=== PATIENT | male | born 1965 | race Caucasian/White ===

== ENCOUNTER 2024-10-21 07:35 | Inpatient (IN) ==
--- OUTSIDE RECORDS SUMMARY | 2024-10-21 07:57 | External Medical Summary ---
Author Name Unknown Address Unknown Organization : Laboratory Report Ordering Provider Test Date Status DenniseCifuentes 10/12/2024 08:58:00 Final Observation Date Value Abnormality Reference (Units ) Status Carbon dioxide, total [Moles/volume] in Serum or Plasma 10/13/2024 03:58:56 23 20-32 (mmol/L) Final
Specimen Received d/t: 10/12/2024 22:31:00

Lab test performed by:
[facility], [facility]
[address]
[place] [address]
Ej Arzola MD eGFR 10/13/2024 03:58:56 58 Below low normal > O R = 60 (mL/min/1.73m2) Final
Specimen Received d/t: 10/12/2024 22:31:00

Lab test performed by:
[facility], [facility]
[address]
[place] [phone]
Ej Arzola MD Sodium [Moles/volume] in Ser um or Plasma 10/13/2024 03:58:56 141 135-146 (mmol/L) January l
Specimen Received d/t: 10/12/2024 22:31:00

Lab test performed by:
[facility], [facility]
[address]
[place] [phone]
Ej Arzola MD Glucose [Mass/volume] in Serum or Plasma 10/13/2024 03:58:56 89 65-99 (mg/dL) Final
Fasting reference inte rval

Specimen Received d/t: 10/12/2024 22:31:00

Lab test performed by:
[facility] [place], [facility]
[address]
[place] [phone]
Ej Arzola MD Chloride [Moles/volume] in S kandi or Plasma 10/13/2024 03:58:56 106 98-110 (mmol/L) Final
Specimen Received d/t: 10/12/2024 22:31:00

Lab test performed by:
[facility], [facility]
[address]
[place] [address]
Ej Arzola MD Creatinine [Mass/volume] in Serum or Plasma 10/13/2024 03:58:56 1.39 Above high normal 0.70-1.30 (mg/dL) Final
Specimen Received d/t: 10/12/2024 22:31:00

Lab test performed by:
[facility], [facility]
[address]
[place] [address]
Ej Arzola MD [facility] 10/13/2024 03:58:56 9.7 8.6-10.3 ( mg/dL) Final
Specimen Received d/t: 10/12/2024 22:31:00

Lab test performed by:
[facility] [place], [facility]
[address]
[place] [address]
Ej Arzola MD Potassium [Moles/volume] in Serum or Plasma 10/13/2024 03:58:56 4.4 3.5-5.3 (mmol/L) January l
Specimen Received d/t: 10/12/2024 22:31:00

Lab test performed by:
[facility], [facility]
[address]
[place] [phone]
Ej Arzola MD Urea nitrogen/Creatinine [Ma ss Ratio] in Serum or Plasma 10/13/2024 03:58:56 10 6-22 ((calc)) January l
Specimen Received d/t: 10/12/2024 22:31:00

Lab test performed by:
[facility], [facility]
[address]
[place] [phone]
Ej Arzola MD Urea nitrogen [Mass/volume] in Serum or Plasma 10/13/2024 03:58:56 14 7-25 (mg/dL) Final
Specimen Received d/t: 10/12/2024 22:31:00

Lab test performed by:
[facility], [facility]
[address]
[place] [phone]
Ej Arzola MD Performing Location
--- OUTSIDE RECORDS SUMMARY | 2024-10-21 07:57 | External Medical Summary | Continuity of Care Document ---
Author Name Unknown Organization [facility] [place] [address] [place] [id number] Care Team Providers Care Quantitative Analyst Name Role Phone Dennise Cifuentes Primary Care Physician [phone] Encounter [facility] [id number] Date(s): 08/03/24 - 08/03/24 [facility] 0 [facility] 207 [facility] Medical [facility] [address] [address] [phone] Encounter Diagnosis Sinusitis, acute(Discharge Diagnosis) - 08/03/24 Weight disorder(Discharge Diagnosis) - 08/05/24 Body mass index [BMI] 35.0-35.9, adult(Discharge Diagnosis) - 08/05/24 Hypertension(Discharge Diagnosis) - 08/05/24 Discharge Disposition: Home or Self Care Attending Physician: DO Emmanuel Allison B Allergies, Adverse Reactions, Alerts No Known Medication Allergies Substance Criticality Severity Reaction Reaction Severity Status Pollen congestion, sneezing Active Assessment and Plan Extracted from: Title:Sinusitis Author:MD Zaheer, Rikkitx Date: 1.Sinusitis, acute Acute, uncomplicated illness/injury Goal: sx resolution Plan: - Approx 5d sx, several coworkers wdx'd sinusinfection - Discussed expected course if actually viral illness - Rx'damox 500mgtidx 7d - Continuesaline nasal spray, flonsase -AdvisedRTCif sxdo notimprovein ~10d _ Immunizations Given and Recorded Vaccine Date Status Refusal Reason zoster vaccine, inactivated 01/30/19 Recorded zoster vaccine, inactivated 11/23/18 Recorded zoster vaccine, inactivated 09/30/18 Recorded tetanus/diphtheria/pertuss, acel (Tdap) 08/14/13 G iven tetanus toxoid 02/27/00 Recorded 1Result Comment: 2021-06-29: Historical information-source unspecified Medications amoxicillin 500 mg oral capsule Start: 08/03/24 9:44:00 AM EST, 1 cap, PO, tid, Disp# 21 cap, Pharmacy: [facility] Start Date: 08/03/24 Stop Date: 08/10/24 Status: Ordered clobetasol 0.05% topical cream Start: 12/19/23 4:21:00 PM EDT, 1 appl, topical, bid, Disp# 60 g, Refills: 2, apply to psoriasis on knee as needed, Pharmacy: [facility] Start Date: 12/19/23 Status: Ordered Flovent HFA 110 mcg/inh MDI Start: 12/04/22 3:46:00 PM EST, 2 puff, inhaled, bid, Disp# 1 each, Refills: 1, Pharmacy: [facility] Start Date: 12/04/22 Status: Ordered lisinopril 10 mg oral tablet Start: 04/09/24 11:27:00 AM EDT, 0.5 tab, PO, Daily, Disp# 90 tab, Refills: 3, Pharmacy: [facility] Start Date: 04/09/24 Status: Ordered Protonix 40 mg oral delayed release tablet Start: 02/10/24 12:37:00 PM EDT, 1 tab, PO, Daily, Disp# 30 tab, Refills: 5, Pharmacy: [facility] Start Date: 02/10/24 Status: Ordered Vitamin D Start: 02/02/22 8:12:00 AM EDT, Vitamin D, See Instructions, 3 x weekly Start Date: 02/02/22 Status: Ordered Wegovy (0.25 mg dose) subcutaneous solution Start: 08/05/24 3:44:00 PM EST, 0.25 mg =, subQ, q7days, Disp# 6 mL, Refills: 1, in the abdomen, thigh, or upper arm, Pharmacy: [facility] Start Date: 08/05/24 Status: Ordered ZyrTEC 10 mg oral tablet Start: 09/19/23 2:49:00 PM EST, 1 tab, PO, Daily, Disp# 90 tab, Refills: 3, , Pharmacy: [facility] Start Date: 09/19/23 Status: Ordered Mental Status 08/03/24 Barriers to Learning one year None evide nt Mandatory Health Literacy Documentation Yes Health Literacy Communication Barriers N ever Primary Language Faroese Problem List Condition Confirmation Course Effective Dates Status Health Status Informant 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 Confirmed Active Cervical lymphadenopathy Confirmed Active Cervical radiculopathy Confirmed Active Chronic sinusitis Confirmed Active Muscle cramp Confirmed Active Vitamin D insufficiency Confirmed Active Carpal tunnel syndrome Confirmed Active Sleep disturbance Confirmed Active Dyslipidemia Confirmed Active Fatigue Confirmed Active Foot pain, left Confirmed Active Pain in both feet Confirmed Active Acid reflux Confirmed Active Hypertension Confirmed Active Hypertriglyceridemia Confirmed Active Elevated CK Confirmed Active Internal hemorrhoid Confirmed Active Malaise Confirmed Active BCC (basal cell carcinoma of skin) Confirmed Active Ear lump 1 Confirmed Active Myalgia Confirmed Active Mild obstructive sleep apnea Confirmed Active Psoriasis Confirmed Active Decreased libido Confirmed Active Elevated serum creatinine Confirmed Active Right shoulder pain Confirmed Active Tobacco abuse Confirmed Active Weight disorder Confirmed Active 1bilateral ear canal lump Diagnosis Diagnosis Type Effective Dates Health Status Clinical Service Informant Sinusitis, acute Discharge Diagnosis 08/03/24 Non-Specified Weight disorder Discharge Diagnosis 08/05/24 Non-Specified Body mass index [BMI] 35.0-35.9, adult Discharge Diagnosis 08/05/24 Non-Specified Hypertension Discharge Diagnosis 08/05/24 Non-Specified Procedures Procedure Date Related Diagnosis Body Site Status Chest x-ray 1 05/04/22 Completed Chest X-ray 2 07/03/21 Completed Colonoscopy 3 08/31/16 Completed Mohs surgery 2010 Completed CAT scan-maxillofacial with contrast 4 Completed Lumbosacral fusion 5 Comp leted Pilonidal fistula Complet ed Shave biopsy of skin Comp leted 1No acute processes of the chest No acute rib fracture or pneumothorax 2Impression: Mild bilateral interstitial coarsening is suspicious for a mild pneumonitis 3-anal scarring found on digital recta exam -the examined portion of the ileum was normal -the entire examined colon is normal -no specimens collected 4[facility] Impression: There are few subcentimeter lymph nodes along the inferior border of the left parotid gland with minimal fat standing at this location. There may be slight hyperenhancement the left parotid gland in comparison to right. Therefore these findings favor a mild parotitis. No loculated fluid collectionsto suggest an abscess. The paranasal sinuses and mastoid air cells are clear. 5L5- S1 Vital Signs Most recent to oldest [Reference Range]: 1 Patient Weight 121.1 kg (08/03/24 8:52 AM) Temperature [36.5-37.9 DegC] 36.7 DegC (08/03/24 8:52 AM) Blood Pressure 124/84mmHg (08/03/24 8:52 AM) BP Location # 1 Left Arm (08/03/24 8:52 AM) Social History Social History Type Response Tobacco 1 Smoking Status Never smoked cigaret mariana Sex Male Sex Representation Male (finding) 1quit chewing tobacco - now chewing herbal snuff FCM Outpt Note * DO Emmanuel Allison B: MODIFY DO Emmanuel Allison B: MODIFY Event Display: [facility] Outpt Note Authored Date: [id number] Chief Complaint Pt here for possible sinus infection. Nasal congestion, cough with yellow/green sputum History of Present Illness Sx since . Started w cough, sinus drainage (initially clear). Then got thicker and yellow. 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 +Sinus pressure,NIELSON, Rhinorrhea.No SOB,ear pain,CP, n/v/c/d [facility] and is adamant about getting tx before he leaves Review of Systems Per HPI Physical Exam Vitals & Measurements T:36.7C BP:124/84 SpO2:97% WT:121.100kg(Dosing) WT:121.1kg PHQ2 Data(Data Documented on:08/03/2024 08:50) Emotional health assessment NEGATIVE General:AOx3, NAD HEENT:NCAT, PERRL, MMM, no erythema or exudate,+sinus tenderness, no drainage noted Cardiovascular:RRR, no m/r/g, S1/S2 normal Respiratory:CTAB, respirations non-labored, symmetrical chest rise, notable cough Gastrointestinal:Soft, NT/ND, +BS Integumentary:Warm, Dry, Lindsey.No rashesorlesions Psych:Mood-affect congruent. Speech pace and content normal Assessment/Plan 1.Sinusitis, acute Acute, uncomplicated illness/injury Goal: sx resolution Plan: - Approx 5d sx, several coworkers wdx'd sinusinfection - Discussed expected course if actually viral illness - Rx'damox 500mgtidx 7d - Continuesaline nasal spray, flonsase -AdvisedRTCif sxdo notimprovein ~10d _ Attestation Pt seen and examined in concert with Dr. Hu_, agree with history and physical as documented above. Plan reviewed in detail. Any corrections or additions are noted here -agree with plan. Patient to be treated with amoxicillin 500 mg 3 times daily x 7 days as this has worked for him in the past . Side effects discussed. Continue oeyc-nyf-uqkmeue relief. Return to the office if signs or symptoms increase or persist. 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 BCC (basal cell carcinoma of skin) Carpal tunnel syndrome Cervical lymphadenopathy Cervical radiculopathy Chronic sinusitis Decreased libido Dyslipidemia Ear lump Elevated CK Elevated serum creatinine Fatigue Foot pain, left Hypertension Hypertriglyceridemia Internal hemorrhoid Malaise Mild obstructive sleep apnea Muscle cramp Myalgia Pain in both feet Psoriasis Right shoulder pain Sleep disturbance Tobacco abuse Vitamin D insufficiency Weight disorder Resolved Acute bronchitis Acute non-suppurative otitis media Acute otitis media Acute sinusitis Procedure/Surgical History Chest x-ray| Service Date: 05/04/2022hest X-ray| Service Date: 07/03/2021olonoscopy| Service Date: 08/31/2016[facility] surgery| Service Date: scan-maxillofacial with contrastShave biopsy of skinPilonidal fistulaLumbosacral fusion Medications amoxicillin(amoxicillin 500 mg oral capsule), 500 mg= 1 cap, PO, tid cetirizine(ZyrTEC 10 mg oral tablet), 10 mg= 1 tab, PO, Daily, 3 refills clobetasol topical(clobetasol 0.05% topical cream), 1 appl, topical, bid, 2 refills fluticasone(Flovent HFA 110 mcg/inh MDI), 2 puff, inhaled, bid, 1 refills lisinopril(lisinopril 10 mg oral tablet), 5 mg= 0.5 tab, PO, Daily, 3 refills pantoprazole(Protonix 40 mg oral delayed release tablet), 40 mg= 1 tab, PO, Daily, 5 refills semaglutide(Wegovy (0.25 mg dose) subcutaneous solution), 0.25 mg, subQ, q7days, 1 refills unknown medication(Vitamin D), See Instructions Allergies No Known Medication Allergies Pollencongestion, sneezing Social History Smoking Status Never smoked cigarettes Alcohol - Comments: occasionally Employment/School Status: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 Exercise - Comments: very active at work. insanity work out. Home/Environment Lives with:Spouse - Comments: daughters - 2 at home. has 4 daughters. Other - Comments: not sure of last td Tobacco - Comments: quit chewing tobacco - now chewing herbal snuff has chewed nicontine - can and half for yrs. none Family History Emphysema of lung: Mother. Gout: Father. Hypertension: Mother and Father. Osteoarthritis: Mother. Osteoporosis: Mother. Renal failure.: Father. Type II diabetes mellitus: Father. Health Status Family Member(s) Immunizations Vaccine Date Status zoster vaccine, inactivated 01/30/2019 Recorded zoster vaccine, inactivated 11/23/2018 Recorded Comments : 2021-06-29: Historical information-source unspecified zoster vaccine, inactivated 09/2018 Recorded tetanus/diphtheria/pertuss, acel (Tdap) 08/14/2013 Given tetanus toxoid 02/27/2000 Recorded Recommendations Health Maintenance Pending(in the next year) OverDue Adult Influenza Vaccine due03/29/24and every 1year Due Adult COVID-19 Vaccination due08/03/24Unknown Frequency Adult Social Determinants of Health Screening due08/03/24Unknown Frequency Adult Tdap/Td Vaccine due08/03/24Unknown Frequency Pneumococcal Vaccine Adults and Adolescents with Chronic Illness due08/03/24One-time only Satisfied(in the past 1 year) Satisfied Body Mass Index on07/23/24.Satisfied by YEIMY Mar [place] Electronic Signature on File Electronically Reviewed/Signed by: Mayte Schwab MD Author Signature Dt/Tm:08/03/2024 09:53 AM Resident Department of Family Medicine Electronically Reviewed/Signed by: DO Dayan Rose Signature Dt/Tm: 08/04/2024 11:43 AM Department of Family Medicine [facility] Patient Care team information Care Team Personnel Name: MD Esau, Dennise Position: Physician - Family Med Member Role: Primary Care Provider Address: [address] [place] [address] [place] Care Team Related Persons Name: ERIKA CARDENAS Name: ZENY CARDENAS Name: ZENY CARDENAS"
--- OUTSIDE RECORDS SUMMARY | 2024-10-21 07:57 | External Medical Summary | Summary of Care ---
Author Name Unknown Organization [facility] Address [address] [place] [address] Phone [phone] Care Team Providers Care Dispatcher Radioactive Waste Disposal Name Role Phone Dennise Cifuentes MD Primary Care Provider [phone] Reason for Referral * Evaluate & Treat - Unlimited Visits (Within 10 days (routine)) - Authorized Specialty Diagnoses / Procedures Referred By Contact Referred To Contact GI NUTRITION/IM / Gastroenterology Diagnoses BMI 35.0-35.9,adult Weight disorder Dennise Cifuentes MD [address] [address] Referral ID Status Reason Start Date Expiration Date Visits Requested Visits Authorized [id number] Authorized Specialty Services Required 08/01/[phone] Question Answer Referral Priority Within 10 days (routine) Where should this appointment be scheduled? [facility] For what condition is the patient being seen? Obesity Is this referral for a GLP1 medication? No Comments THE PATIENT WILL NOT BE PRESCRIBED GLP-1 MEDICATIONS UNLESS: *Documentation of an unsuccessful trial of losing at least 5% of weight loss *Documentation the patient has had tried and failed two [2] non-GLP1 agonists (Phentermine and Wellbutrin/ Naltrexone) *Documentation of two [2] or more appointments discussing weight loss and lifestyle changes *Documentation of a blood pressure and weight within the EMR before initiation of the GLP-1 or non-GLP-1 medications REFERRING PROVIDER MUST ACKNOWLEDGE ALL OF THE CONDITIONS ABOVE ARE MET AND HAVE A BMI >35. IF THESE CONDITIONS ARE NOT MET THE PATIENT WILL NOT BE PRESCRIBED GLP- 1 PRESCRIPTIONS. Encounter Details Date Type Department Care Team (Late st Contact Info) Description 08/01/2024 Orders Only [facility] [place] [facility] [address] [place] [address] Ext *DO NOT REMOVE THIS DEPARTMENT* [place] [id number] Request, External Referral BMI 35.0-35.9,adult*; Weight disorder Allergies No known active allergiesdocumented as of this encounter (statuses as of 08/01/2024) Medications Medication Sig Dispensed Refills Start Date End Date Status Lisinopril 10 MG Oral Tablet (Prinivil) 03/21/2022 Active Triamcinolone Acetonide 0.025 % External Lotion Apply topically to affected area . Apply to hands Active Meloxicam 15 MG Oral TabletIndications:Po lyarthralgia Take by mouth 1 Tablet daily with breakfast . 30 Tablet 5 04/09/2022 Active Tamsulosin HCl 0.4 MG Oral Capsule (Flomax) Take 1 Capsule by mouth in the morning. 1 daily. 08/28/2022 Active Clotrimazole-Betamet hasone 1-0.05 % External Cream (Lotrisone) APPLY A SMALL/PEA-SIZED AMOUNT TOPICALLY EVERY 8 HOURS AND AT LEAST BEFORE BED 08/28/2022 Active documented as of this encounter (statuses as of 08/01/2024) Active Problems Problem Noted Date Diagnosed Date Hypertension 09/18/2022 Class 2 obesity 02/02/2022 Hypertriglyceridemia 02/02/2022 Psoriasis 02/02/2022 documented as of this encounter (statuses as of 08/01/2024) Social History Tobacco Use Types Packs/Day Years Used Date Smoking Tobacco: Never Smokeless Tobacco: Current Alcohol Use Standard Drinks/Week Comments No 0 (1 standard drink = 0.6 oz pur e alcohol) Utilities Answer Date Recorded Do you have trouble paying y our heating, water, or electric bill? (Adult - for ages 18 years and over) Not on file 03/17/2024 Is your family able to pay t he heat, water, or electric bill? (Household - for ages 0-17 years) Not on file 03/17/2024 Does your family have access to good internet? (Household - for ages 0-17 years) Not on file 03/17/2024 Social Connections Answer Date Recorded How often do you feel lonely or isolated from those around you? (Adult - for ages 18 years and over) Not on file 03/17/2024 Sex and Gender Information Value Date Recorded Sex Assigned at Not on file Gender Identity Not on file Sexual Orientation Not on file Job Start Date Occupation Industry Not on file Not on file Not on file documented as of this encounter Plan of Treatment Scheduled Referrals Name Type Priority Associated Diagnoses Orde r Schedule GI NUTRITION REFERRAL OP Referral Within 10 days (routine) BMI 35.0-35.9,adult Weight disorder Ordered: 08/01/2024 Health Maintenance Due Date Last Done Comments Lipid Panel 1965 Depression Screening 1977 HIV Screening 1980 Albumin/Creatinine Ratio 1983 Hepatitis C Screening 1983 DTap/Tdap Vaccines (1 - Tdap) 1984 Hepatitis B Vaccine (1 of 3 - 19+ 3-dose series) 1984 Cologuard 2010 Colonoscopy 2010 Colorectal Cancer Screening 2010 Fecal Occult Blood Test 2010 Sigmoidoscopy 2010 GFR 07/20/2023 07/20/2022 COVID-19 Vaccine (2023-2 5 season) 2024 Influenza Vaccine (FLU shot) (#1) 2024 Diabetes Screening 07/20/2025 07/20/2022 Zoster Vaccines Completed 01/30/2019, 11/23/2018 HPV (Gardasil) Vaccine Aged Out No lo nger eligible based on patient's age to complete this topic MENINGOCOCCAL (MENACTRA/MENVEO) Aged Out No longer eligible b ased on patient's age to complete this topic Pneumococcal Vaccine: Pediatrics (0 to 5 Years) and At-Risk Patients (6 to 64 Years) Aged Out No longer eligible b ased on patient's age to complete this topic documented as of this encounter Medical Devices Not on filedocumented as of this encounter Visit Diagnoses Diagnosis BMI 35.0-35.9,adult- Primary Body Mass Index 35.0-35.9, adult Weight disorder Other symptoms concerning nutrition, metabolism, and development documented in this encounter Care Teams Dispatcher Radioactive Waste Disposal Relationship Specialty Start Date End Date Dennise Cifuentes MD [address] [place] [address] PCP - General Family Medicine 11/30/21 documented as of this encounter
--- OUTSIDE RECORDS SUMMARY | 2024-10-21 07:57 | External Medical Summary ---
Author Name Unknown Address Unknown Organization : Laboratory Report Ordering Provider Test Date Status Esau Bowden 10/12/2024 08:58:00 Final Observation Date Value Abnormality Reference (Units ) Status Prostate specific Ag [Mass/volume] in Serum or Plasma 10/13/2024 03:58:56 0.84 < OR = 4.00 (ng/mL) Final The total PSA value from thi s assay system is
standardized against the WHO standard. The test
result will be approximately 20% lower when compared
to the equimolar-standardized total PSA (Boogie
Christophe). Comparison of serial PSA results should be
interpreted with this fact in mind.

This test was performed using the Siemens
chemiluminescent method. Values obtained from
different assay methods cannot be used
interchangeably. PSA levels, regardless of
value, should not be interpreted as absolute
evidence of the presence or absence of disease.

Specimen Received d/t: 10/12/2024 22:31:00

Lab test performed by:
[facility]
[address]
[place] [address]
Ej Arzola MD Performing Location
--- OUTSIDE RECORDS SUMMARY | 2024-10-21 07:57 | External Medical Summary | Continuity of Care Document ---
Author Name Unknown Organization [facility] [address] [place] [address] [place] [address] [phone] Care Team Providers Care Criminal Defense Attorney Name Role Phone Dennise Cifuentes Primary Care Physician [phone] Encounter [facility] [phone] Date(s): 07/23/24 - 07/23/24 [facility] [address] [facility] [address] [address] [phone] Encounter Diagnosis Hypertension(Discharge Diagnosis) - 07/23/24 Dizziness on standing(Discharge Diagnosis) - 07/23/24 Foot pain(Discharge Diagnosis) - 07/23/24 Weight disorder(Discharge Diagnosis) - 07/23/24 Body mass index [BMI] 35.0-35.9, adult(Discharge Diagnosis) - 07/23/24 Discharge Disposition: Home or Self Care Attending Physician: MD Cifuentes Madhavi Allergies, Adverse Reactions, Alerts No Known Medication Allergies Substance Criticality Severity Reaction Reaction Severity Status Pollen congestion, sneezing Active Assessment and Plan Extracted from: Title:Office Visit Note - APSO Author:MD Cifuentes Madhavi Date:07/23/24 1.Hypertension Chronic,unstable,goalavoid hypotension Datanone Plan -see below 2.Dizziness on standing Acute,undifferentiated,goalimprove symptoms. Data none Plan- dizziness likely fromorthostasiswith lower baseline blood pressure readingswhile on lisinopril Decrease dose to 5 mg Check blood pressure readingsat home. If dizziness persists -will DC lisinoprilandcheck labs. 3.Foot pain Chronic,uncontrolled,goal improve symptoms Data none Plan - Refer toorthotics.Order entered 4.Weight disorder 5.Body mass index [BMI] 35.0-35.9, adult Chronic, uncontrolled, plan - weight loss. data - none plan - has tried his bed with dietary changes but struggling during the day at work with food choices. referral to quality process lead, ralf [email or web address]. f/u as scheduled. Immunizations Given and Recorded Vaccine Date Status Refusal Reason zoster vaccine, inactivated 01/30/19 Recorded zoster vaccine, inactivated 1 11/23/18 Recorded zoster vaccine, inactivated 09/30/18 Recorded tetanus/diphtheria/pertuss, acel (Tdap) 08/14/13 G iven tetanus toxoid 02/27/00 Recorded 1Result Comment: 2021-06-29: Historical information-source unspecified Medications clobetasol 0.05% topical cream Start: 12/19/23 4:21:00 PM EDT, 1 appl, topical, bid, Disp# 60 g, Refills: 2, apply to psoriasis on knee as needed, Pharmacy: [id number] Start Date: 12/19/23 Status: Ordered Flovent HFA 110 mcg/inh MDI Start: 12/04/22 3:46:00 PM EST, 2 puff, inhaled, bid, Disp# 1 each, Refills: 1, Pharmacy: [id number] Start Date: 12/04/22 Status: Ordered lisinopril 10 mg oral tablet Start: 04/09/24 11:27:00 AM EDT, 0.5 tab, PO, Daily, Disp# 90 tab, Refills: 3, Pharmacy: [facility] Start Date: 04/09/24 Status: Ordered Protonix 40 mg oral delayed release tablet Start: 02/10/24 12:37:00 PM EDT, 1 tab, PO, Daily, Disp# 30 tab, Refills: 5, Pharmacy: [facility] Start Date: 02/10/24 Status: Ordered Vitamin D Start: 02/02/22 8:12:00 AM EDT, Vitamin D, See Instructions, 3 x weekly Start Date: 02/02/22 Status: Ordered Wegovy (0.25 mg dose) subcutaneous solution Start: 07/23/24 9:46:00 AM EDT, 0.25 mg =, subQ, q7days, Disp# 6 mL, Inject 0.25 mg SQ every 7 daysX 4 weeks then increase to 0.5 mg every 7 days, Pharmacy: [facility] Start Date: 07/23/24 Status: Ordered ZyrTEC 10 mg oral tablet Start: 09/19/23 2:49:00 PM EST, 1 tab, PO, Daily, Disp# 90 tab, Refills: 3, , Pharmacy: [id number] Start Date: 09/19/23 Status: Ordered Mental Status 07/23/24 Barriers to Learning one year None evide nt Mandatory Health Literacy Documentation Yes Health Literacy Communication Barriers N ever Primary Language Kinyarwanda Problem List Condition Confirmation Course Effective Dates [...] Effective Dates Health Status Clinical Service Informant Dizziness on standing Discharge Diagnosis 07/23/24 Non-Specified Foot pain Discharge Diagnosis 07/23/24 Non-Specified Body mass index [BMI] 35.0-35.9, adult Discharge Diagnosis 07/23/24 Non-Specified Hypertension Discharge Diagnosis 07/23/24 Non-Specified Weight disorder Discharge Diagnosis 07/23/24 Non-Specified Procedures Procedure Date Related Diagnosis Body [...] colon is normal -no specimens collected [facility] Impression: There are few subcentimeter lymph nodes [...] Most recent to oldest [Reference Range]: 1 Height 184.6 cm (07/23/24 9:13 AM) Patient Weight 119.5 kg (07/23/24 9:13 AM) Body Mass Index 35.07 kg/m2 (07/23/24 9:13 AM) Temperature [36.5-37.9 DegC] 36.4 DegC *LOW* (07/23/24 9:13 AM) Heart Rate 56 bpm (07/23/24 9:13 AM) Respiratory Rate 18 br/min (07/23/24 9:13 AM) Blood Pressure 116/82mmHg (07/23/24 9:13 AM) Cuff Pulse Pressure 34 mmHg (07/23/24 9:13 AM) Social History Social History Type Response Tobacco 1 Smoking Status Never smoked cigaret mariana Sex Male Sex Representation Male (finding) 1quit chewing tobacco - now chewing herbal snuff FCM Outpt Note * MD Esau, Dennise: PERFORM Event Display: FCM Outpt Note Authored Date: Assessment/Plan 1.Hypertension Chronic,unstable,goalavoid hypotension Datanone Plan -see below 2.Dizziness on standing Acute,undifferentiated,goalimprove symptoms. Data none Plan- dizziness likely fromorthostasiswith lower baseline blood pressure readingswhile on lisinopril Decrease dose to 5 mg Check blood pressure readingsat home. If dizziness persists -will DC lisinoprilandcheck labs. 3.Foot pain Chronic,uncontrolled,goal improve symptoms Data none Plan - Refer toorthotics.Order entered 4.Weight disorder 5.Body mass index [BMI] 35.0-35.9, adult Chronic, uncontrolled, plan - weight loss. data - none plan - has tried his bed with dietary changes but struggling during the day at work with food choices. referral to quality process lead, ralf [email or web address]. f/u as scheduled. Chief Complaint lightheadedness after bending down History of Present Illness Lightheadedness - while bending at work - when standing - gets lightheaded when standing. then gets up slowly. no palpitation. systolic BP at home 121, 113 before taking lisinopril in am. Foot pain - feet - hurting a lot. has had extensive work up for it. has found regular shoes that are helping butwondering about orthotics for work boots Weight mx - wants to loose weight to help with his foot pain wants to try wegovy. Physical Exam Vitals & Measurements T:36.4C HR:56(Monitored) RR:18 BP:116/82 SpO2:97% HT:184.6cm WT:119.500kg(Dosing) WT:119.5kg BMI:35.07 PHQ2 Data(Data Documented on:07/23/2024 09:10) Emotional health assessment NEGATIVE Comfortable RRR no resp distress Problem List/Past Medical History Ongoing Acid reflux [...] 05/04/2022hest X-ray| Service Date: 07/03/2021olonoscopy| Service Date: 08/31/2016[facility] surgery| Service Date: scan-maxillofacial with contrastShave biopsy of skinPilonidal fistulaLumbosacral fusion Medications cetirizine(ZyrTEC 10 mg oral tablet), 10 mg= [...] mg dose) subcutaneous solution), 0.25 mg, subQ, q7days unknown medication(Vitamin D), See Instructions Allergies No Known Medication Allergies Pollencongestion, sneezing Social History Smoking Status Never smoked cigarettes Alcohol - Comments: occasionally Employment/School Status: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 Exercise - Comments: very [...] due03/29/24and every 1year Due Adult COVID-19 Vaccination due07/23/24Unknown Frequency Adult Social Determinants of Health Screening due07/23/24Unknown Frequency Adult Tdap/Td Vaccine due07/23/24Unknown Frequency Pneumococcal Vaccine Adults and Adolescents with Chronic Illness due07/23/24One-time only Satisfied(in the past 1 year) Satisfied Body Mass Index on07/23/24.Satisfied by YEIMY Mar [place] Electronic Signature on File Electronically Reviewed/Signed by: Dennise Cifuentes MD Author Signature Dt/Tm:07/23/2024 10:03 AM Department of Family Medicine [place] Patient Care team information Care Team Personnel Name: MD Cifuentes Madhavi Position: Physician - Family Med Member Role: Primary Care Provider Address: [address] [phone] [place] Care Team Related Persons Name: ERIKA CARDENAS Name: ZENY CARDENAS Name: ZENY CARDENAS"
--- NOTE | 2024-10-21 08:04 | Emergency Department Note ---
Impression & Plan Sepsis, Enterotoxigenic Escherichia coli infection, Salmonella infection, Acute renal failure ED Provider Note NAME: MARÍA CARDENAS AGE: 59 SEX: M : 1965 ARRIVES VIA: Walk-In INFORMANT: Patient ED PROVIDER(S): Jw Contreras MD CHIEF COMPLAINT: Dizziness, nausea, vomiting, diarrhea. PLAN: Disposition: Admit MEDICAL DECISION MAKING: The patient is a pleasant 59-year-old gentleman with a past medical history of hypertension who presents to the emergency department via walk-in accompanied by his for evaluation of generalized weakness, dizziness with ongoing diarrhea for the past several days. The patient reports he also has not urinated in that time. They described the stool as liquid brown with numerous episodes per day. Patient reports associated nausea and vomiting as well. He reports some left lateral chest pain but denies shortness of breath, cough, congestion. On arrival the patient is ill-appearing, hypotensive with blood pressure 50s/30s, heart rate in the 90s and rectal temperature of 36.3. O2 saturation is 98% on room air. He appears clinically dry. Abdomen is nontender. EKG without overt acute ischemia. CXR negative for acute cardiopulmonary process per my personal preliminary review/interpretation. WBC 15K with neutrophilia but no left shift. H/H is hemoconcentrated with hemoglobin of 19.4 and 54.5. VBG with pH of 7.3 with pCO2 within normal limits. Chemistry demonstrates acute renal failure with creatinine of 5.4 and BUN of 56 in the setting of having baseline normal creatinine. K+ 3.1. Bicarbonate is 21. Anion gap is 19 and lactic acid initial 3.1 with repeat improved to 2.1 after 2 L of normal saline. Sodium was 127 with glucose of 145. AST is mildly elevated at 45, nonspecific and LFTs otherwise normal. Initial high-sensitivity troponin 53 which was downtrending to 41 on repeat. Lipase is not elevated. Procalcitonin is 11.7. UA demonstrates WBCs and bacteria but with epithelial cells present. Stool studies were ordered and pending. Respiratory BioFire was negative. CT of the abdomen pelvis demonstrates evidence of colitis. CT of the chest was negative for acute abnormalities. Of note, patient's hypotension did respond to initial 2 L of IV fluids however then became hypotensive again. Third liter was administered with fluid responsiveness but then again down trending and hypotensive. A limited bedside cardiac ultrasound demonstrated grossly normal EF and collapsed IVC consistent with the patient's clinically dry appearance. He was ordered for 1 L of lactated ringers and Levophed ordered for blood pressure support at 0.05mcg/kg/min with maps improved to the 70s. Blood cultures were sent and empiric Zosyn was ordered. Esteban catheter was placed without 5cc of urine initially. Case was d/[place]. [place] [facility] [place] who will evaluate the patient for admission. Stool studies resulted subsequently positive for Salmonella and ETEC. Admitting team aware. Further management per admitting team. Triage Nursing notes reviewed and agree them. Prior/external medical records reviewed Vital Signs: reviewed Differential diagnosis: Gastroenteritis, food borne illness, infections, appendicitis, diverticulitis, inflammatory bowel disease, obstruction, GI bleed, biliary pathology, volvulus, as well as other pathologies. ER treatment provided: See below. Diagnostics interpreted by me: ECG: Normal sinus rhythm, 68 bpm, no ectopy, no overt ST ovation or depression, QTc 440, QRS 96. Cardiac Monitoring: An order for continuous cardiac monitoring was placed and demonstrated Normal sinus rhythm, 68 bpm, no ectopy Laboratory studies: See below Imaging studies: See below Consultation(s): Case was d/[place] Dr. [place] [facility] [place] who will evaluate the patient for admission. HPI: The patient is a pleasant 59-year-old gentleman with a past medical history of hypertension who presents to the emergency department via walk-in accompanied by his for evaluation of generalized weakness, dizziness with ongoing diarrhea for the past several days. The patient reports he also has not urinated in that time. They described the stool as liquid brown with numerous episodes per day. Patient reports associated nausea and vomiting as well. He reports some left lateral chest pain but denies shortness of breath, cough, congestion. ROS: See above HPI for pertinent positives & negatives. A total of 10 systems reviewed and were otherwise negative. VITALS:See Below PHYSICAL EXAMINATION: GENERAL: Awake, alert, ill-appearing, in no distress HENT: Normocephalic, atraumatic. Oropharynx with dry mucous membranes and otherwise unremarkable. EYES: Normal conjunctiva. Sclera non-icteric. NECK: Supple. No nuchal rigidity. FROM. No JVD. RESPIRATORY: Clear to auscultation. CARDIAC: Tachycardic rate, normal rhythm. Extremities warm and well perfused. Pulses equal. ABDOMEN: Soft, non-distended. No tenderness to palpation. No rebound or guarding. No masses. MUSCULOSKELETAL: Chest examination reveals no tenderness. The back is symmetrical on inspection without obvious abnormality. There is no CVA tenderness to palpation. No joint edema. LOWER EXTREMITIES: Calves are equal size bilaterally and non-tender. No edema. No discoloration. NEURO: Normal sensorium. No sensory or motor deficits noted. SKIN: Cool and pale. No rash or jaundice noted. ED COURSE: Critical Care: I have personally spent greater than 55 minutes of critical care time in the direct management of this patient. This includes bedside care, interpretation of diagnostic studies, and testing, discussion with consultants, patient, and family members, and other required patient management activities. This 55 minutes is in excess of all separately billable procedures. Jw Contreras MD Past Med/Surg History Problem List (Updated 10/21/24 @ 15:54 by Jw Contreras MD) Acute renal failure (Acute) Sepsis (Acute) Salmonella infection (Acute) Enterotoxigenic Escherichia coli infection (Acute) Hypotension HEATHER (acute kidney injury) Diarrhea Septic shock Colitis Umbilical hernia without obstruction and without gangrene Obesity (BMI 30-39.9) Diastasis recti 1st MTP arthritis Testicular/scrotal pain Scrotal lesion Medical History Hypertension Surgical History No significant past surgical history Social History Smoking Status: Never smoker Tobacco Type: Smokeless Tobacco (Dip or Chew) Second Hand Exposure: No; Do You Dip or Chew Tobacco: Yes; Tobacco Cessation Education Requested by Patient: No Hx Alcohol Use: No Hx Substance Use: No Preferred Language: Hong Konger Communication Ability: Effective Toolsmith Required: No Beliefs That Will Affect Care: None Current Living Situation: Spouse Other Information That Helps Us Care for You: No Feels Safe at Home: Yes Safety Concerns: Feels Safe At This Time Assistive Devices: None Allergies Allergies Allergy/AdvReac Type Severity Reaction Status Date / Time No Known Allergies Allergy Unknown Verified 10/21/24 09:41 Home Meds Home Medications Medication Instructions Recorded Confirmed lisinopril 10 mg tablet 10 mg PO DAILY 10/21/24 10/21/24 prednisone 10 mg tablet See Rx Instructions .Route .COMPLEX 10/21/24 10/21/24 semaglutide (weight loss) 0.25 0.25 mg subcut WK 10/21/24 10/21/24 mg/0.5 mL subcutaneous pen injector (Wegovy) Results & Data (ED) Vital Signs Vital Signs - 24 hr 10/21/24 07:44 10/21/24 08:00 10/21/24 08:01 Temperature Temperature Source Pulse Rate 94 H Pulse Rate from SpO2 Sensor Respiratory Rate 18 Respiratory Effort / Characteristics Non-Labored Spontaneous Respiratory Depth Normal Blood Pressure 55/38 L 78/52 L Blood Pressure [Right Arm] Blood Pressure Mean 43 61 Blood Pressure Mean [Right Arm] Blood Pressure Position Sitting Blood Pressure Position [Right Arm] Pulse Oximetry 98 96 Oxygen Delivery Method Room Air Room Air Sepsis Recent Fever Within 48 Hours No Sepsis New/Unexplained Change in Mental Status No Sepsis Action Taken by Nursing No Action Required 10/21/24 08:03 10/21/24 08:14 10/21/24 08:18 Temperature 36.3 C L Temperature Source Rectal Pulse Rate 67 65 Pulse Rate from SpO2 Sensor 67 65 Respiratory Rate 11 L 18 Respiratory Effort / Characteristics Respiratory Depth Blood Pressure 78/52 L 89/48 L Blood Pressure [Right Arm] Blood Pressure Mean 60 61 Blood Pressure Mean [Right Arm] Blood Pressure Position Blood Pressure Position [Right Arm] Pulse Oximetry 97 98 Oxygen Delivery Method Sepsis Recent Fever Within 48 Hours Sepsis New/Unexplained Change in Mental Status Sepsis Action Taken by Nursing 10/21/24 08:24 10/21/24 08:30 10/21/24 09:03 Temperature Temperature Source Pulse Rate 65 59 L 66 Pulse Rate from SpO2 Sensor 59 L 66 Respiratory Rate 17 19 Respiratory Effort / Characteristics Respiratory Depth Blood Pressure 97/50 L 74/53 L Blood Pressure [Right Arm] Blood Pressure Mean 65 60 Blood Pressure Mean [Right Arm] Blood Pressure Position Blood Pressure Position [Right Arm] Pulse Oximetry 95 97 Oxygen Delivery Method Sepsis Recent Fever Within 48 Hours Sepsis New/Unexplained Change in Mental Status Sepsis Action Taken by Nursing 10/21/24 09:15 10/21/24 09:24 10/21/24 09:41 Temperature 36.4 C L Temperature Source Esteban Cath ( Temp Sensing) Pulse Rate 80 Pulse Rate from SpO2 Sensor 80 Respiratory Rate 19 Respiratory Effort / Characteristics Respiratory Depth Blood Pressure 90/58 L 99/61 L Blood Pressure [Right Arm] Blood Pressure Mean 68 72 Blood Pressure Mean [Right Arm] Blood Pressure Position Blood Pressure Position [Right Arm] Pulse Oximetry 97 Oxygen Delivery Method Sepsis Recent Fever Within 48 Hours Sepsis New/Unexplained Change in Mental Status Sepsis Action Taken by Nursing 10/21/24 09:51 10/21/24 10:00 10/21/24 10:00 Temperature Temperature Source Pulse Rate 64 69 67 Pulse Rate from SpO2 Sensor 66 68 Respiratory Rate 19 21 18 Respiratory Effort / Characteristics Respiratory Depth Blood Pressure 82/54 L 110/58 L 110/58 L Blood Pressure [Right Arm] Blood Pressure Mean 63 75 70 Blood Pressure Mean [Right Arm] Blood Pressure Position Blood Pressure Position [Right Arm] Pulse Oximetry 98 97 97 Oxygen Delivery Method Sepsis Recent Fever Within 48 Hours Sepsis New/Unexplained Change in Mental Status Sepsis Action Taken by Nursing 10/21/24 10:12 10/21/24 10:15 10/21/24 10:24 Temperature 37.0 C Temperature Source Esteban Cath ( Temp Sensing) Pulse Rate 69 Pulse Rate from SpO2 Sensor Respiratory Rate 20 Respiratory Effort / Characteristics Respiratory Depth Blood Pressure 106/55 L 94/57 L Blood Pressure [Right Arm] Blood Pressure Mean 72 67 Blood Pressure Mean [Right Arm] Blood Pressure Position Blood Pressure Position [Right Arm] Pulse Oximetry 97 Oxygen Delivery Method Sepsis Recent Fever Within 48 Hours Sepsis New/Unexplained Change in Mental Status Sepsis Action Taken by Nursing 10/21/24 10:27 10/21/24 10:30 10/21/24 10:32 Temperature Temperature Source Pulse Rate 70 Pulse Rate from SpO2 Sensor 68 Respiratory Rate 22 Respiratory Effort / Characteristics Respiratory Depth Blood Pressure 77/52 L Blood Pressure [Right Arm] 69/49 L Blood Pressure Mean 58 Blood Pressure Mean [Right Arm] 55 Blood Pressure Position Blood Pressure Position [Right Arm] Sitting Pulse Oximetry 95 Oxygen Delivery Method Sepsis Recent Fever Within 48 Hours Sepsis New/Unexplained Change in Mental Status Sepsis Action Taken by Nursing 10/21/24 10:32 10/21/24 10:36 10/21/24 10:39 Temperature Temperature Source Pulse Rate 69 69 Pulse Rate from SpO2 Sensor 69 69 Respiratory Rate 27 H 20 Respiratory Effort / Characteristics Respiratory Depth Blood Pressure 77/52 L 84/47 L 86/55 L Blood Pressure [Right Arm] Blood Pressure Mean 58 59 65 Blood Pressure Mean [Right Arm] Blood Pressure Position Blood Pressure Position [Right Arm] Pulse Oximetry 96 98 Oxygen Delivery Method Sepsis Recent Fever Within 48 Hours Sepsis New/Unexplained Change in Mental Status Sepsis Action Taken by Nursing 10/21/24 10:40 10/21/24 10:42 10/21/24 10:45 Temperature Temperature Source Pulse Rate 65 Pulse Rate from SpO2 Sensor 64 Respiratory Rate 23 Respiratory Effort / Characteristics Respiratory Depth Blood Pressure 86/55 L 94/59 L Blood Pressure [Right Arm] Blood Pressure Mean 65 72 Blood Pressure Mean [Right Arm] Blood Pressure Position Blood Pressure Position [Right Arm] Pulse Oximetry 97 Oxygen Delivery Method Sepsis Recent Fever Within 48 Hours Sepsis New/Unexplained Change in Mental Status Sepsis Action Taken by Nursing 10/21/24 10:45 10/21/24 10:45 10/21/24 10:48 Temperature Temperature Source Pulse Rate 63 65 Pulse Rate from SpO2 Sensor 64 62 Respiratory Rate 26 H 27 H Respiratory Effort / Characteristics Respiratory Depth Blood Pressure 94/59 L Blood Pressure [Right Arm] Blood Pressure Mean 72 Blood Pressure Mean [Right Arm] Blood Pressure Position Blood Pressure Position [Right Arm] Pulse Oximetry 97 99 Oxygen Delivery Method Sepsis Recent Fever Within 48 Hours Sepsis New/Unexplained Change in Mental Status Sepsis Action Taken by Nursing 10/21/24 10:50 10/21/24 10:50 10/21/24 10:51 Temperature Temperature Source Pulse Rate 64 Pulse Rate from SpO2 Sensor 64 Respiratory Rate 22 Respiratory Effort / Characteristics Respiratory Depth Blood Pressure 105/58 L 105/58 L Blood Pressure [Right Arm] Blood Pressure Mean 64 64 Blood Pressure Mean [Right Arm] Blood Pressure Position Blood Pressure Position [Right Arm] Pulse Oximetry 99 Oxygen Delivery Method Sepsis Recent Fever Within 48 Hours Sepsis New/Unexplained Change in Mental Status Sepsis Action Taken by Nursing 10/21/24 10:55 10/21/24 11:00 10/21/24 11:00 Temperature Temperature Source Pulse Rate Pulse Rate from SpO2 Sensor Respiratory Rate Respiratory Effort / Characteristics Respiratory Depth Blood Pressure 108/58 L 99/62 L 99/62 L Blood Pressure [Right Arm] Blood Pressure Mean 75 74 74 Blood Pressure Mean [Right Arm] Blood Pressure Position Blood Pressure Position [Right Arm] Pulse Oximetry Oxygen Delivery Method Sepsis Recent Fever Within 48 Hours Sepsis New/Unexplained Change in Mental Status Sepsis Action Taken by Nursing 10/21/24 11:00 10/21/24 11:03 Temperature Temperature Source Pulse Rate 72 Pulse Rate from SpO2 Sensor 71 Respiratory Rate 21 Respiratory Effort / Characteristics Respiratory Depth Blood Pressure 99/62 L Blood Pressure [Right Arm] Blood Pressure Mean 74 Blood Pressure Mean [Right Arm] Blood Pressure Position Blood Pressure Position [Right Arm] Pulse Oximetry 97 Oxygen Delivery Method Sepsis Recent Fever Within 48 Hours Sepsis New/Unexplained Change in Mental Status Sepsis Action Taken by Nursing Laboratory Data Attestation: I reviewed the patient's lab results. 10/21/24 07:55 10/21/24 07:55 Lab Results 10/21/24 10/21/24 10/21/24 Range/Units 07:55 08:05 08:09 WBC 15.00 H (4.8-10.8) K/ul RBC 6.44 H (4.70-6.10) M/uL Hgb 19.4 H (14.0-18.0) g/dl POC Hgb (14.0-18.0) g/dl Hct 54.5 H (42.0-52.0) % POC Hct (42-52) % MCV 84.6 (80.0-100.0) fL MCH 30.1 (25.0-34.0) pg MCHC 35.6 (32.0-36.0) g/dL RDW Std Deviation 39.8 (36.4-46.3) fL RDW Coeff of Cipriano 13.4 (11.5-14.5) % Plt Count 215 (130-400) K/uL MPV 11.5 (9.4-12.4) fL Immature Gran % (Auto) 0.7 % Neut % (Auto) 81.8 % Lymph % (Auto) 10.2 % [place] % (Auto) 6.7 % Eos % (Auto) 0.3 % Baso % (Auto) 0.3 % Neut # (Auto) 12.27 H (1.40-6.50) K/uL Lymph # (Auto) 1.53 (1.20-3.40) K/uL [place] # (Auto) 1.00 H (0.11-0.59) K/uL Eos # (Auto) 0.05 (0.00-0.50) K/uL Baso # (Auto) 0.05 (0.00-0.20) K/uL Immature Gran # (Auto) 0.10 (0.01-0.20) K/uL POC Sodium (135-144) mmol/L Sodium 127 L (136-145) mmol/L POC Potassium (3.3-5.0) mmol/L Potassium 3.3 L (3.5-5.1) mmol/L POC Chloride (101-112) mmol/L Chloride 87 L (98-107) mmol/L Carbon Dioxide 21 (21-32) mmol/L POC Total CO2 (24-31) mmol/L Anion Gap 19 H (3-11) POC Anion Gap (16-25) mmol/L POC BUN (7-18) mg/dl BUN 56 H (6-23) mg/dl Creatinine 5.40 H* (0.6-1.4) mg/dl POC Creatinine (0.6-1.3) mg/dl Est Cr Clr Drug Dosing 19.1 ml/min eGFR 11.46 BUN/Creatinine Ratio 10.4 (10-20) Glucose 145 H (70-99(Fasting)) mg/dl POC Glucose (other) (70-99) mg/dl Lactate 3.1 H* (0.4-2.0) mmol/L Calcium 9.9 (8.6-10.3) mg/dl POC Ioniz Calcium Julianne (1.12-1.32) mmol/l Magnesium 2.2 (1.7-2.4) mg/dl Total Bilirubin 0.6 (0.2-1.0) mg/dl Direct Bilirubin 0.1 (0-0.2) mg/dl AST 45 H (13-39) U/L ALT 38 (7-52) U/L Alkaline Phosphatase 74 (34-104) U/L Troponin I High Sens 53.4 H* (0-20) pg/ml Total Protein 8.3 (6.0-8.3) gm/dl Albumin 4.6 (3.4-5.0) gm/dl Lipase 19 (11-82) U/L Procalcitonin 11.70 H (0-0.5) ng/ml Random Cortisol 57.78 mcg/dl Urine Color Urine Appearance (Clear) Urine pH (4.5-7.5) Ur Specific [place] (1.000-1.030) Urine Protein (Negative) Urine Glucose (UA) (Negative) Urine Ketones (Negative) Urine Blood (Negative) Urine Nitrite (Negative) Urine Bilirubin (Negative) Urine Urobilinogen (Negative) Ur Leukocyte Esterase (Negative) Urine WBC (Auto) (0-5) /hpf Urine RBC (Auto) (0-2) /hpf U Hyaline Cast (Auto) (0-2) /lpf U Epithel Cells (Auto) (0-2) /hpf Urine Bacteria (Auto) (None Seen) Stl C. cayetanensis PCR (NotDetected) Stool Rotavirus A PCR (NotDetected) Stl Adenov F 40/41 PCR (NotDetected) Stool Astrovirus (PCR) (NotDetected) Stool Campylobacter PCR (NotDetected) Stl C. diff Tox B Gene (Neg) Stool Cryptosporidium PCR (NotDetected) Stl E.coli Shiga Tox PCR (NotDetected) Stl Enterotoxigenic E PCR (NotDetected) Stool EPEC (PCR) (NotDetected) Stool EAEC (PCR) (NotDetected) Stl E. histolytica PCR (NotDetected) Stool Giardia Lamblia PCR (NotDetected) Stool Salmonella PCR (NotDetected) Stool Sapovirus (PCR) (NotDetected) Stl P. shigelloides PCR (NotDetected) Stl Shigella/EIEC PCR (NotDetected) St Y.enterocolitica PCR (NotDetected) Stool Vibrio (PCR) (NotDetected) Stl Vibrio cholerae PCR (NotDetected) Stl Norovirus GI/GII PCR (NotDetected) Adenovirus (PCR) Not Detected (NotDetected) B. pertussis DNA (PCR) Not Detected (NotDetected) B.parapertussis DNA PCR Not Detected (NotDetected) C. pneumoniae DNA (PCR) Not Detected (NotDetected) Coronavirus OC43 (PCR) Not Detected (NotDetected) Coronavirus HKU1 (PCR) Not Detected (NotDetected) Coronavirus 229E (PCR) Not Detected (NotDetected) SARS-CoV-2 (PCR) Not Detected (NotDetected) Coronavirus NL63 (PCR) Not Detected (NotDetected) Human Metapneumovir PCR Not Detected (NotDetected) Influenza Type A (PCR) Not Detected (NotDetected) Influenza Type B (PCR) Not Detected (NotDetected) M. pneumoniae (PCR) Not Detected (NotDetected) Parainfluenza 1 (PCR) Not Detected (NotDetected) Parainfluenza 2 (PCR) Not Detected (NotDetected) Parainfluenza 3 (PCR) Not Detected (NotDetected) Parainfluenza 4 (PCR) Not Detected (NotDetected) RSV (PCR) Not Detected (NotDetected) Entero/Rhino (PCR) Not Detected (NotDetected) 10/21/24 10/21/24 10/21/24 Range/Units 08:36 09:45 09:51 WBC (4.8-10.8) K/ul RBC (4.70-6.10) M/uL Hgb (14.0-18.0) g/dl POC Hgb 16.7 (14.0-18.0) g/dl Hct (42.0-52.0) % POC Hct 49 (42-52) % MCV (80.0-100.0) fL MCH (25.0-34.0) pg MCHC (32.0-36.0) g/dL RDW Std Deviation (36.4-46.3) fL RDW Coeff of Cipriano (11.5-14.5) % Plt Count (130-400) K/uL MPV (9.4-12.4) fL Immature Gran % (Auto) % Neut % (Auto) % Lymph % (Auto) % [place] % (Auto) % Eos % (Auto) % Baso % (Auto) % Neut # (Auto) (1.40-6.50) K/uL Lymph # (Auto) (1.20-3.40) K/uL [place] # (Auto) (0.11-0.59) K/uL Eos # (Auto) (0.00-0.50) K/uL Baso # (Auto) (0.00-0.20) K/uL Immature Gran # (Auto) (0.01-0.20) K/uL POC Sodium 130 L (135-144) mmol/L Sodium (136-145) mmol/L POC Potassium 3.1 L (3.3-5.0) mmol/L Potassium (3.5-5.1) mmol/L POC Chloride 96 L (101-112) mmol/L Chloride (98-107) mmol/L Carbon Dioxide (21-32) mmol/L POC Total CO2 20 L (24-31) mmol/L Anion Gap (3-11) POC Anion Gap 18.0 (16-25) mmol/L POC BUN 49 H (7-18) mg/dl BUN (6-23) mg/dl Creatinine (0.6-1.4) mg/dl POC Creatinine 5.3 H* (0.6-1.3) mg/dl Est Cr Clr Drug Dosing ml/min eGFR BUN/Creatinine Ratio (10-20) Glucose (70-99(Fasting)) mg/dl POC Glucose (other) 130 H (70-99) mg/dl Lactate 2.1 H* (0.4-2.0) mmol/L Calcium (8.6-10.3) mg/dl POC Ioniz Calcium Julianne 1.06 L (1.12-1.32) mmol/l Magnesium (1.7-2.4) mg/dl Total Bilirubin (0.2-1.0) mg/dl Direct Bilirubin (0-0.2) mg/dl AST (13-39) U/L ALT (7-52) U/L Alkaline Phosphatase (34-104) U/L Troponin I High Sens 41.9 H D (0-20) pg/ml Total Protein (6.0-8.3) gm/dl Albumin (3.4-5.0) gm/dl Lipase (11-82) U/L Procalcitonin (0-0.5) ng/ml Random Cortisol mcg/dl Urine Color Dark Yellow Urine Appearance Turbid A (Clear) Urine pH 5.0 (4.5-7.5) Ur Specific [place] 1.025 (1.000-1.030) Urine Protein 2+ H (Negative) Urine Glucose (UA) Negative (Negative) Urine Ketones Trace H (Negative) Urine Blood 3+ H (Negative) Urine Nitrite Negative (Negative) Urine Bilirubin 1+ H (Negative) Urine Urobilinogen Negative (Negative) Ur Leukocyte Esterase Negative (Negative) Urine WBC (Auto) 11-20 H (0-5) /hpf Urine RBC (Auto) >20 H (0-2) /hpf U Hyaline Cast (Auto) >20 H (0-2) /lpf U Epithel Cells (Auto) 11-20 H (0-2) /hpf Urine Bacteria (Auto) 2+ H (None Seen) Stl C. cayetanensis PCR (NotDetected) Stool Rotavirus A PCR (NotDetected) Stl Adenov F 40/41 PCR (NotDetected) Stool Astrovirus (PCR) (NotDetected) Stool Campylobacter PCR (NotDetected) Stl C. diff Tox B Gene (Neg) Stool Cryptosporidium PCR (NotDetected) Stl E.coli Shiga Tox PCR (NotDetected) Stl Enterotoxigenic E PCR (NotDetected) Stool EPEC (PCR) (NotDetected) Stool EAEC (PCR) (NotDetected) Stl E. histolytica PCR (NotDetected) Stool Giardia Lamblia PCR (NotDetected) Stool Salmonella PCR (NotDetected) Stool Sapovirus (PCR) (NotDetected) Stl P. shigelloides PCR (NotDetected) Stl Shigella/EIEC PCR (NotDetected) St Y.enterocolitica PCR (NotDetected) Stool Vibrio (PCR) (NotDetected) Stl Vibrio cholerae PCR (NotDetected) Stl Norovirus GI/GII PCR (NotDetected) Adenovirus (PCR) (NotDetected) B. pertussis DNA (PCR) (NotDetected) B.parapertussis DNA PCR (NotDetected) C. pneumoniae DNA (PCR) (NotDetected) Coronavirus OC43 (PCR) (NotDetected) Coronavirus HKU1 (PCR) (NotDetected) Coronavirus 229E (PCR) (NotDetected) SARS-CoV-2 (PCR) (NotDetected) Coronavirus NL63 (PCR) (NotDetected) Human Metapneumovir PCR (NotDetected) Influenza Type A (PCR) (NotDetected) Influenza Type B (PCR) (NotDetected) M. pneumoniae (PCR) (NotDetected) Parainfluenza 1 (PCR) (NotDetected) Parainfluenza 2 (PCR) (NotDetected) Parainfluenza 3 (PCR) (NotDetected) Parainfluenza 4 (PCR) (NotDetected) RSV (PCR) (NotDetected) Entero/Rhino (PCR) (NotDetected) 10/21/24 Range/Units 10:00 WBC (4.8-10.8) K/ul RBC (4.70-6.10) M/uL Hgb (14.0-18.0) g/dl POC Hgb (14.0-18.0) g/dl Hct (42.0-52.0) % POC Hct (42-52) % MCV (80.0-100.0) fL MCH (25.0-34.0) pg MCHC (32.0-36.0) g/dL RDW Std Deviation (36.4-46.3) fL RDW Coeff of Cipriano (11.5-14.5) % Plt Count (130-400) K/uL MPV (9.4-12.4) fL Immature Gran % (Auto) % Neut % (Auto) % Lymph % (Auto) % [place] % (Auto) % Eos % (Auto) % Baso % (Auto) % Neut # (Auto) (1.40-6.50) K/uL Lymph # (Auto) (1.20-3.40) K/uL [place] # (Auto) (0.11-0.59) K/uL Eos # (Auto) (0.00-0.50) K/uL Baso # (Auto) (0.00-0.20) K/uL Immature Gran # (Auto) (0.01-0.20) K/uL POC Sodium (135-144) mmol/L Sodium (136-145) mmol/L POC Potassium (3.3-5.0) mmol/L Potassium (3.5-5.1) mmol/L POC Chloride (101-112) mmol/L Chloride (98-107) mmol/L Carbon Dioxide (21-32) mmol/L POC Total CO2 (24-31) mmol/L Anion Gap (3-11) POC Anion Gap (16-25) mmol/L POC BUN (7-18) mg/dl BUN (6-23) mg/dl Creatinine (0.6-1.4) mg/dl POC Creatinine (0.6-1.3) mg/dl Est Cr Clr Drug Dosing ml/min eGFR BUN/Creatinine Ratio (10-20) Glucose (70-99(Fasting)) mg/dl POC Glucose (other) (70-99) mg/dl Lactate (0.4-2.0) mmol/L Calcium (8.6-10.3) mg/dl POC Ioniz Calcium Julianne (1.12-1.32) mmol/l Magnesium (1.7-2.4) mg/dl Total Bilirubin (0.2-1.0) mg/dl Direct Bilirubin (0-0.2) mg/dl AST (13-39) U/L ALT (7-52) U/L Alkaline Phosphatase (34-104) U/L Troponin I High Sens (0-20) pg/ml Total Protein (6.0-8.3) gm/dl Albumin (3.4-5.0) gm/dl Lipase (11-82) U/L Procalcitonin (0-0.5) ng/ml Random Cortisol mcg/dl Urine Color Urine Appearance (Clear) Urine pH (4.5-7.5) Ur Specific [place] (1.000-1.030) Urine Protein (Negative) Urine Glucose (UA) (Negative) Urine Ketones (Negative) Urine Blood (Negative) Urine Nitrite (Negative) Urine Bilirubin (Negative) Urine Urobilinogen (Negative) Ur Leukocyte Esterase (Negative) Urine WBC (Auto) (0-5) /hpf Urine RBC (Auto) (0-2) /hpf U Hyaline Cast (Auto) (0-2) /lpf U Epithel Cells (Auto) (0-2) /hpf Urine Bacteria (Auto) (None Seen) Stl C. cayetanensis PCR Not Detected (NotDetected) Stool Rotavirus A PCR Not Detected (NotDetected) Stl Adenov F 40/41 PCR Not Detected (NotDetected) Stool Astrovirus (PCR) Not Detected (NotDetected) Stool Campylobacter PCR Not Detected (NotDetected) Stl C. diff Tox B Gene Negative Cdiff Gene (Neg) Stool Cryptosporidium PCR Not Detected (NotDetected) Stl E.coli Shiga Tox PCR Not Detected (NotDetected) Stl Enterotoxigenic E PCR DETECTED A* (NotDetected) Stool EPEC (PCR) Not Detected (NotDetected) Stool EAEC (PCR) Not Detected (NotDetected) Stl E. histolytica PCR Not Detected (NotDetected) Stool Giardia Lamblia PCR Not Detected (NotDetected) Stool Salmonella PCR DETECTED A* (NotDetected) Stool Sapovirus (PCR) Not Detected (NotDetected) Stl P. shigelloides PCR Not Detected (NotDetected) Stl Shigella/EIEC PCR Not Detected (NotDetected) St Y.enterocolitica PCR Not Detected (NotDetected) Stool Vibrio (PCR) Not Detected (NotDetected) Stl Vibrio cholerae PCR Not Detected (NotDetected) Stl Norovirus GI/GII PCR Not Detected (NotDetected) Adenovirus (PCR) (NotDetected) B. pertussis DNA (PCR) (NotDetected) B.parapertussis DNA PCR (NotDetected) C. pneumoniae DNA (PCR) (NotDetected) Coronavirus OC43 (PCR) (NotDetected) Coronavirus HKU1 (PCR) (NotDetected) Coronavirus 229E (PCR) (NotDetected) SARS-CoV-2 (PCR) (NotDetected) Coronavirus NL63 (PCR) (NotDetected) Human Metapneumovir PCR (NotDetected) Influenza Type A (PCR) (NotDetected) Influenza Type B (PCR) (NotDetected) M. pneumoniae (PCR) (NotDetected) Parainfluenza 1 (PCR) (NotDetected) Parainfluenza 2 (PCR) (NotDetected) Parainfluenza 3 (PCR) (NotDetected) Parainfluenza 4 (PCR) (NotDetected) RSV (PCR) (NotDetected) Entero/Rhino (PCR) (NotDetected) Administered Medications Acetaminophen (Acetaminophen 325 Mg Tab) 650 mg PO Q4H PRN PRN Reason: Pain or Fever Stop: 11/20/24 12:24 Last Admin: 10/21/24 15:21 Dose: 650 mg Documented By: ES Heparin Sodium (Porcine) (Heparin Sod 5,000 Unit/0.5 Ml Vial) 5,000 units SQ Q8 [facility] Stop: 11/20/24 13:59 Last Admin: 10/21/24 13:26 Dose: 5,000 units Documented By: PRIETO Norepinephrine Bitartrate (Levophed/D5w) 4 mg in 250 mls @ 21.881 mls/hr IV .[id number] [facility]; Protocol Stop: 11/20/24 10:44 Last Titration: 10/21/24 13:24 Dose: 0 mcg/kg/min, 0 mls/hr Documented By: PRIETO Co-signed By: [facility] Admin: 10/21/24 10:38 Dose: 0.05 mcg/kg/min, 21.9 mls/hr Documented By: RICHARD Co-signed By: CONCEPCIÓN Parenteral Electrolytes (Plasma-Lyte A Ph 7.4) 1,000 mls @ 125 mls/hr IV .Q8H [facility] Stop: 10/22/24 11:14 Last Admin: 10/21/24 11:19 Dose: 125 mls/hr Documented By: JESSICA Lovell (Icu Protocol For Hyperglycemia) 1 each N/A ACHS [facility] Stop: 10/23/24 12:24 Last Admin: 10/21/24 13:25 Dose: Not Given Documented By: PRIETO Ondansetron HCl (Ondansetron Inj 2 Mg/Ml 2 Ml Vial) 4 mg IV Q4H PRN PRN Reason: Nausea Stop: 11/20/24 12:24 Last Admin: 10/21/24 14:35 Dose: 4 mg Documented By: PRIETO Discontinued Medications Sodium Chloride (Nss) 1,000 mls @ 999 mls/hr IV .Q1H1M [facility] Stop: 10/21/24 10:15 Last Infusion: 10/21/24 09:00 Dose: Infused Documented By: Infusion: 10/21/24 08:50 Dose: 0 mls/hr Documented By: Admin: 10/21/24 08:24 Dose: 999 mls/hr Documented By: Infusion: 10/21/24 08:24 Dose: Infused Documented By: Admin: 10/21/24 08:05 Dose: 999 mls/hr Documented By: CONCEPCIÓN Famotidine (Pepcid 20mg Iv Push) 20 mg in 5 mls @ 2.5 mls/min IV NOW STA Stop: 10/21/24 08:11 Last Admin: 10/21/24 08:23 Dose: 2.5 mls/min Documented By: CONCEPCIÓN Sodium Chloride (Nss) 1,000 mls @ 999 mls/hr IV .Q1H1M ONE Stop: 10/21/24 10:01 Last Infusion: 10/21/24 09:25 Dose: Infused Documented By: Admin: 10/21/24 09:09 Dose: 999 mls/hr Documented By: CONCEPCIÓN Lactated Ringer's (Lr) 1,000 mls @ 999 mls/hr IV .Q1H1M ONE Stop: 10/21/24 11:45 Last Infusion: 10/21/24 11:19 Dose: Infused Documented By: Admin: 10/21/24 10:50 Dose: 999 mls/hr Documented By: CONCEPCIÓN Sodium Chloride (Nss) 500 mls @ 999 mls/hr IV .Q31M ONE Stop: 10/21/24 11:05 Last Infusion: 10/21/24 11:01 Dose: Infused Documented By: Admin: 10/21/24 10:40 Dose: 999 mls/hr Documented By: RICHARD Piperacillin Sod/Tazobactam Sod (Zosyn) 4.5 gm in 100 mls @ 200 mls/hr IV NOW ONE; Protocol Stop: 10/21/24 11:04 Last Infusion: 10/21/24 11:11 Dose: Infused Documented By: Admin: 10/21/24 10:41 Dose: 200 mls/hr Documented By: CONCEPCIÓN Hydrocortisone Sodium (Succinate 200 mg/ Syringe) 4 mls @ 4 mls/min IV NOW STA Stop: 10/21/24 12:49 Last Admin: 10/21/24 13:25 Dose: 4 mls/min Documented By: PRIETO Miscellaneous (Stat Iv Infusion Titration Per Protocol) 1 each N/A NOW STA Stop: 10/21/24 10:38 Last Admin: 10/21/24 10:42 Dose: Not Given Documented By: CONCEPCIÓN Norepinephrine Bitartrate (Norepinephrine/D5w 4 Mg/250 Ml) Confirm Administered Dose 4 mg IV .STK-MED ONE Stop: 10/21/24 10:36 Last Admin: 10/21/24 10:39 Dose: Not Given Documented By: RICHARD Ondansetron HCl (Ondansetron Inj 2 Mg/Ml 2 Ml Vial) 4 mg IV NOW STA Stop: 10/21/24 08:11 Last Admin: 10/21/24 08:24 Dose: 4 mg Documented By: CONCEPCIÓN Imaging Data Radiologist's Impression: Chest X-Ray 10/21/24 08:01 XR chest 1V portable CLINICAL HISTORY: Sepsis. COMPARISON STUDY: Chest radiograph and right rib series May 04, 2022. FINDINGS: There is mild elevation of the right hemidiaphragm. Lungs are clear. There is no pneumothorax or pleural effusion. Cardiac size is normal. Mediastinal contours are normal. There is no evidence for pulmonary edema. IMPRESSION: No acute cardiopulmonary findings. ACT 112: Negative or not required by law. Electronically signed by: Olivier López M.D. 10/21/2024 8:26 AM Abdomen/Pelvis CT 10/21/24 08:[address] WITHOUT CONTRAST CT DOSE: 2601 HISTORY: left cp/abd pain, hypotension, diarrhea, arf TECHNIQUE: Multiaxial CT images of the abdomen and pelvis were performed without contrast. A dose lowering technique was utilized adhering to the principles of ALARA. COMPARISON STUDY: None FINDINGS: ABDOMEN: Liver, gallbladder spleen, pancreas, and adrenal glands have an unremarkable non-IV contrast appearance. Kidneys show no hydronephrosis or calculi. There are mild atherosclerotic calcifications. No abdominal aortic aneurysm. Pelvis: Esteban catheter is present. Urinary bladder is empty. There is mild wall thickening and inflammation at the right and transverse colon. Normal appendix. There are a few tiny small bowel diverticula at the right lower quadrant with no acute diverticulitis seen. No free fluid, free air, or abscess. No enlarged adenopathy. No bowel obstruction. Osseous structures: There is diffuse lumbar degenerative disc disease. There is posterior metallic fusion at L5-S1. No acute osseous findings. IMPRESSION: 1. Diffuse colitis at the right and transverse colon. 2. No other acute findings seen. ACT 112: Negative or not required by law. The above report was generated using voice recognition software. It may contain grammatical, syntax or spelling errors. Electronically signed by: Minh Mccracken M.D. 10/21/2024 9:[address] 10/21/24 08:59 CT chest diagnostic wo con CT DOSE: 2601.4 mGy.cm CLINICAL HISTORY: left cp/abd pain, hypotension, diarrhea, arf. TECHNIQUE: Multiaxial CT images of the chest were performed without contrast. A dose lowering technique was utilized adhering to the principles of ALARA. COMPARISON STUDY: None FINDINGS: There is no pulmonary consolidation, pleural effusion, or pneumothorax. No significant pulmonary nodule. No enlarged adenopathy. No pericardial effusion. No thoracic aortic aneurysm. There are mild thoracic spine degenerative changes. No acute osseous findings. IMPRESSION: No acute findings. ACT 112: Negative or not required by law. Electronically signed by: Minh Mccracken M.D. 10/21/2024 9:51 AM Discharge Plan Visit Data Chief Complaint: Illness Stated Complaint: DIARRHEA,VOMITING,CHILLS,FEVER,CRAMPING,ACHES ED Provider: Jw Contreras Discharge Problem: Sepsis, Enterotoxigenic Escherichia coli infection, Salmonella infection, Acute renal failure Patient Disposition: Admitted As Inpatient Discharge Instructions Interventions: ED Discharge Assessment Last Done: 10/21/24 11:56 Discharge Problem: Sepsis Qualifiers: Sepsis type: sepsis due to unspecified organism Sepsis acute organ dysfunction status: with acute organ dysfunction Severe sepsis acute organ dysfunction type: acute renal failure Acute renal failure type: unspecified Severe sepsis shock status: unspecified Qualified Code(s): A41.9 - Sepsis, unspecified organism Acute renal failure Qualifiers: Acute renal failure type: unspecified Qualified Code(s): N17.9 - Acute kidney failure, unspecified
[2024-10-21] MEDS: SODIUM CHLORIDE 0.9% 1,000 ML IV SCH (08:05)
[2024-10-21] MEDS: FAMOTIDINE 20MG IV PUSH 20 MG/5 ML SYR IV STA (08:23)
[2024-10-21] MEDS: ONDANSETRON INJ 2 MG/ML 2 ML VIAL IV STA (08:24)
[2024-10-21 08:27] LABS: Hematocrit (blood only) 54.5 % (42.0-52.0); Hemoglobin 19.4 g/dl (14.0-18.0); Mean Corpuscular Hemoglobin 30.1 pg (25.0-34.0); Mean Corpuscular Hgb Conc 35.6 g/dL (32.0-36.0); Mean Corpuscular Volume 84.6 fL (80.0-100.0); Mean Platelet Volume 11.5 fL (9.4-12.4); Platelet Count 215 K/uL (130-400); RDW Coefficient of Variation 13.4 % (11.5-14.5); RDW Standard Deviation 39.8 fL (36.4-46.3); Red Blood Count 6.44 M/uL (4.70-6.10)
--- NOTE | 2024-10-21 08:27 | XRay Report ---
XR chest 1V portable CLINICAL HISTORY: Sepsis. COMPARISON STUDY: Chest radiograph and right rib series May 04, 2022. FINDINGS: There is mild elevation of the right hemidiaphragm. Lungs are clear. There is no pneumothor ax or pleural effusion. Cardiac size is normal. Mediastinal contours are normal. There is no evidence for pulmonary edema. IMPRESSION: No acute cardiopulmonary findings. ACT 112: Negative or not required by law. Electronically signed by: Olivier López M.D. 10/21/2024 8:26 AM
[2024-10-21 08:50] LABS: iSTAT Creatinine 5.3 mg/dl (0.6-1.3); iSTAT Hemoglobin 16.7 g/dl (14.0-18.0); iSTAT Ionized Calcium 1.06 mmol/l (1.12-1.32); iSTAT Potassium 3.1 mmol/L (3.3-5.0)
[2024-10-21 08:55] LABS: Basophils # (auto) 0.05 K/uL (0.00-0.20); Basophils % (auto) 0.3 %; Eosinophils # (auto) 0.05 K/uL (0.00-0.50); Eosinophils % (auto) 0.3 %; Immature Granulocytes % (auto) 0.7 %; Lymphocytes # (auto) 1.53 K/uL (1.20-3.40); Lymphocytes % (auto) 10.2 %; Monocytes % (auto) 6.7 %; Neutrophils # (auto) 12.27 K/uL (1.40-6.50); Neutrophils % (auto) 81.8 %
[2024-10-21 09:01] LABS: Creatinine Clr Calc Pharmacy 19.1 ml/min
[2024-10-21 09:08] LABS: Albumin Level 4.6 gm/dl (3.4-5.0); BUN Creatinine Ratio 10.4 (10-20); Bilirubin Direct 0.1 mg/dl (0-0.2); Bilirubin,Total 0.6 mg/dl (0.2-1.0); Calcium 9.9 mg/dl (8.6-10.3); Magnesium 2.2 mg/dl (1.7-2.4); Potassium 3.3 mmol/L (3.5-5.1); Total Protein 8.3 gm/dl (6.0-8.3); Troponin I High Sensitivity 53.4 pg/ml (0-20)
[2024-10-21] MEDS: SODIUM CHLORIDE 0.9% 1,000 ML IV ONE (09:09)
[2024-10-21 09:15] LABS: Adenovirus PCR Not Detected (NotDetected); Bordetella parapertussis PCR Not Detected (NotDetected); Bordetella pertussis PCR Not Detected (NotDetected); Chlamydia pneumoniae PCR Not Detected (NotDetected); Coronavirus 229E PCR Not Detected (NotDetected); Coronavirus CoV-2 (COVID19)PCR Not Detected (NotDetected); Coronavirus HKU1 PCR Not Detected (NotDetected); Coronavirus NL63 PCR Not Detected (NotDetected); Coronavirus OC43PCR Not Detected (NotDetected); Human Metapneumovirus PCR Not Detected (NotDetected); Influenza A PCR Not Detected (NotDetected); Influenza B PCR Not Detected (NotDetected); Mycoplasma pneumoniae PCR Not Detected (NotDetected); Parainfluenza Virus 1 PCR Not Detected (NotDetected); Parainfluenza Virus 2 PCR Not Detected (NotDetected); Parainfluenza Virus 3 PCR Not Detected (NotDetected); Parainfluenza Virus 4 PCR Not Detected (NotDetected); Respiratory Syncytial VirusPCR Not Detected (NotDetected); Rhinovirus/Enterovirus PCR Not Detected (NotDetected)
--- NOTE | 2024-10-21 09:52 | CT Scan Report ---
CT chest diagnostic wo con CT DOSE: 2601.4 mGy.cm CLINICAL HISTORY: left cp/abd pain, hypotension, diarrhea, arf. TECHNIQUE: Multiaxial CT images of the chest were performed without contrast. A dose lowering techni que was utilized adhering to the principles of ALARA. COMPARISON STUDY: None FINDINGS: There is no pulmonary consolidation, pleural effusion, or pneumothorax. No significant pulm onary nodule. No enlarged adenopathy. No pericardial effusion. No thoracic aortic aneurysm. There are mild thoracic spine degenerative changes. No acute osseous findings. IMPRESSION: No acute findings. ACT 112: Negative or not required by law. Electronically signed by: Minh Mccracken M.D. 10/21/2024 9:51 AM
--- NOTE | 2024-10-21 09:59 | CT Scan Report ---
ABDOMEN AND PELVIS CT WITHOUT CONTRAST CT DOSE: 2601 HISTORY: left cp/abd pain, hypotension, diarrhea, arf TECHNIQUE: Multiaxial CT images of the abdomen and pelvis were performed without contrast. A dose lo wering technique was utilized adhering to the principles of ALARA. COMPARISON STUDY: None FINDINGS: ABDOMEN: Liver, gallbladder spleen, pancreas, and adrenal glands have an unremarkable non-IV contrast appearance. Kidneys show no hydronephrosis or calculi. There are mild atherosclerotic calcifications . No abdominal aortic aneurysm. Pelvis: Esteban catheter is present. Urinary bladder is empty. There is mild wall thickening and inflam mation at the right and transverse colon. Normal appendix. There are a few tiny small bowel diverticu la at the right lower quadrant with no acute diverticulitis seen. No free fluid, free air, or abscess . No enlarged adenopathy. No bowel obstruction. Osseous structures: There is diffuse lumbar degenerative disc disease. There is posterior metallic fu vinicio at L5-S1. No acute osseous findings. IMPRESSION: 1. Diffuse colitis at the right and transverse colon. 2. No other acute findings seen. ACT 112: Negative or not required by law. The above report was generated using voice recognition software. It may contain grammatical, syntax o r spelling errors. Electronically signed by: Minh Mccracken M.D. 10/21/2024 9:57 AM
[2024-10-21 10:25] LABS: Appearance Urine Turbid (Clear); Bacteria Urine Automated 2+ (None Seen); Bilirubin Urine 1+ (Negative); Blood Urine 3+ (Negative); Cast Urine Automated >20 /lpf (0-2); Color Urine Dark Yellow; Glucose Urine UA Negative (Negative); Ketones Urine Trace (Negative); Leukocyte Esterase Urine Negative (Negative); Nitrite Urine Negative (Negative); Protein Urine 2+ (Negative); RBC Urine Automated >20 /hpf (0-2); Specific Gravity Urine 1.025 (1.000-1.030); Urobilinogen Urine Negative (Negative)
[2024-10-21] MEDS: NOREPINEPHRINE/D5W 4 MG/250 ML PLCT IV SCH (10:38)
[2024-10-21] MEDS: NOREPINEPHRINE/D5W 4 MG/250 ML IV ONE (10:39)
[2024-10-21] MEDS: SODIUM CHLORIDE 0.9% 500 ML IV ONE (10:40)
[2024-10-21] MEDS: PIPERACILLIN/TAZOBACTAM 4.5 GM/100 ML BAG IV ONE (10:41)
[2024-10-21] MEDS: STAT IV Infusion **Titration per Protocol STA (10:42)
[2024-10-21] MEDS: LACTATED RINGER'S 1,000 ML IV ONE (10:50)
--- NOTE | 2024-10-21 10:57 | History & Physical Report ---
Date of Service October 21, 2024 Assessment & Plan (1) Septic shock: Plan: MAP continues to drop below 65 despite 4.5L fluid bolus in the ER, will continue on norepinephrine and wean as able Hold lisinopril Continue Plasma-Lyte @125ml/hr Continue empiric antibiotics with IV Zosyn pending blood culture results Follow up blood and urine cultures (2) HEATHER (acute kidney injury): Plan: Producing 20ml of urine over 20 minutes in the ER, no plans on consulting nephrology at this time unless urine output decreases No pulmonary edema, hyperkalemia, refractory acidosis to suggest need for urgent dialysis (3) Colitis: Plan: Suspected source of sepsis C. diff negative Stool PCR otherwise pending (4) Diarrhea: Plan: Pending PCR testing will consider loperamide Plan VTE Prophylaxis - Heparin 5000 units SQ q8h Diet - low fiber Diposition - admit to ICU Admission and Anticipated Discharge Date Admission Date: October 21, 2024 History of Present Illness Chief Complaint: Diarrhea, lightheadedness Primary Care Provider: Dennise Cifuentes MD Roel Dos Santos is a 59 year old male who presents to the ER with diarrhea, generalized weakness and lightheadedness. He reports illness started on Sat. Mainly with diarrhea, mild abdominal pain associated with bowel movements and a few episodes of vomiting. No melena or bright red blood in stool. Stool has been watery. No history of c. diff or antibiotics within the last month. He notes being on a 4 day course of prednisone from Saturday to Saturday last week for knee inflammation which is an ongoing assisted issue with occasional acute flare ups which he puts down to meniscal tear. He takes lisinopril for hypertension which he last took this morning. He has also been on Wegovy for weight loss for the last 10 weeks, which he last took on Saturday when he got sick. No nausea or vomiting currently. No prior similar diarrheal illness. No respiratory or urinary (other than reduced) symptoms. Allergies Allergy/AdvReac Type Severity Reaction Status Date / Time No Known Allergies Allergy Unknown Verified 10/21/24 09:41 Home Medications Medication Instructions Recorded Confirmed Type lisinopril 10 mg tablet 10 mg PO DAILY 10/21/24 10/21/24 History prednisone 10 mg tablet See Rx Instructions .Route .COMPLEX 10/21/24 10/21/24 History semaglutide (weight loss) 0.25 0.25 mg subcut WK 10/21/24 10/21/24 History mg/0.5 mL subcutaneous pen injector (Wegovy) Past Med/Surg History Problem List (Updated 10/21/24 @ 11:33 by Eliezer Blanton MD) HEATHER (acute kidney injury) Diarrhea Septic shock Colitis Umbilical hernia without obstruction and without gangrene Obesity (BMI 30-39.9) Diastasis recti 1st MTP arthritis Testicular/scrotal pain Scrotal lesion Medical History (Updated 10/21/24 @ 11:33 by Eliezer Blanton MD) Hypertension Surgical History (Updated 10/21/24 @ 11:28 by Eliezer Blanton MD) No significant past surgical history Social History Smoking Status: Never smoker Hx Alcohol Use: No Hx Substance Use: No Preferred Language: Polish Feels Safe at Home: Yes Review of Systems Review of Systems: All systems reviewed & are unremarkable except as noted in HPI & below Physical Exam Constitutional: WD/WN, vitals as above Eyes: + anicteric sclerae; normal pupil size ENMT: Mouth: + dry oral mucous membranes Respiratory: normal respiratory effort, lungs clear to auscultation Cardiovascular: Rate/Rhythm: regular rate and regular rhythm Heart Sounds: no murmur Extremities: normal capillary refill and + pedal edema (trace); no calf tenderness Gastrointestinal (Abdomen): Inspection/Auscultation: abdomen normal to inspection; abdomen not distended Percussion/Palpation: + abdomen tender (Right sided) and abdomen soft; no guarding and abdomen not rigid Musculoskeletal: no cyanosis or clubbing, extremities motor strength 5/5 Skin: no rashes, warm and dry Neurologic: moves all extremities and awake; no focal motor deficits and not confused Psychiatric: A+Ox3, euthymic affect Genitourinary: no CVA tenderness Results & Data Results & Data Vital Signs (Past 12 Hours) Vital Signs Temp Pulse Resp BP Pulse Ox O2 Del Method 10/21/24 10:39 69 20 86/55 L 98 10/21/24 10:36 69 27 H 84/47 L 96 10/21/24 10:32 77/52 L 10/21/24 10:32 77/52 L 10/21/24 10:27 70 22 95 10/21/24 10:24 94/57 L 10/21/24 10:15 69 20 106/55 L 97 10/21/24 10:12 37.0 C 10/21/24 10:00 67 18 110/58 L 97 10/21/24 10:00 69 21 110/58 L 97 10/21/24 09:51 64 19 82/54 L 98 10/21/24 09:41 99/61 L 10/21/24 09:24 36.4 C L 10/21/24 09:15 80 19 90/58 L 97 10/21/24 09:03 66 19 74/53 L 97 10/21/24 08:30 59 L 17 97/50 L 95 10/21/24 08:24 65 10/21/24 08:18 65 18 89/48 L 98 10/21/24 08:14 36.3 C L 10/21/24 08:03 67 11 L 78/52 L 97 10/21/24 08:01 96 Room Air 10/21/24 08:00 78/52 L 10/21/24 07:44 94 H 18 55/38 L 98 Room Air Laboratory Results Abnormal lab results 10/21/24 10/21/24 10/21/24 Range/Units 07:55 08:09 08:36 WBC 15.00 H (4.8-10.8) K/ul RBC 6.44 H (4.70-6.10) M/uL Hgb 19.4 H (14.0-18.0) g/dl Hct 54.5 H (42.0-52.0) % Neut # (Auto) 12.27 H (1.40-6.50) K/uL Todd # (Auto) 1.00 H (0.11-0.59) K/uL POC Sodium 130 L (135-144) mmol/L Sodium 127 L (136-145) mmol/L POC Potassium 3.1 L (3.3-5.0) mmol/L Potassium 3.3 L (3.5-5.1) mmol/L POC Chloride 96 L (101-112) mmol/L Chloride 87 L (98-107) mmol/L POC Total CO2 20 L (24-31) mmol/L Anion Gap 19 H (3-11) POC BUN 49 H (7-18) mg/dl BUN 56 H (6-23) mg/dl Creatinine 5.40 H* (0.6-1.4) mg/dl POC Creatinine 5.3 H* (0.6-1.3) mg/dl Glucose 145 H (70-99(Fasting)) mg/dl POC Glucose (other) 130 H (70-99) mg/dl Lactate 3.1 H* (0.4-2.0) mmol/L POC Ioniz Calcium Julianne 1.06 L (1.12-1.32) mmol/l AST 45 H (13-39) U/L Troponin I High Sens 53.4 H* (0-20) pg/ml Procalcitonin 11.70 H (0-0.5) ng/ml Urine Appearance (Clear) Urine Protein (Negative) Urine Ketones (Negative) Urine Blood (Negative) Urine Bilirubin (Negative) Urine WBC (Auto) (0-5) /hpf Urine RBC (Auto) (0-2) /hpf U Hyaline Cast (Auto) (0-2) /lpf U Epithel Cells (Auto) (0-2) /hpf Urine Bacteria (Auto) (None Seen) 10/21/24 10/21/24 Range/Units 09:45 09:51 WBC (4.8-10.8) K/ul RBC (4.70-6.10) M/uL Hgb (14.0-18.0) g/dl Hct (42.0-52.0) % Neut # (Auto) (1.40-6.50) K/uL Todd # (Auto) (0.11-0.59) K/uL POC Sodium (135-144) mmol/L Sodium (136-145) mmol/L POC Potassium (3.3-5.0) mmol/L Potassium (3.5-5.1) mmol/L POC Chloride (101-112) mmol/L Chloride (98-107) mmol/L POC Total CO2 (24-31) mmol/L Anion Gap (3-11) POC BUN (7-18) mg/dl BUN (6-23) mg/dl Creatinine (0.6-1.4) mg/dl POC Creatinine (0.6-1.3) mg/dl Glucose (70-99(Fasting)) mg/dl POC Glucose (other) (70-99) mg/dl Lactate 2.1 H* (0.4-2.0) mmol/L POC Ioniz Calcium Julianne (1.12-1.32) mmol/l AST (13-39) U/L Troponin I High Sens 41.9 H D (0-20) pg/ml Procalcitonin (0-0.5) ng/ml Urine Appearance Turbid A (Clear) Urine Protein 2+ H (Negative) Urine Ketones Trace H (Negative) Urine Blood 3+ H (Negative) Urine Bilirubin 1+ H (Negative) Urine WBC (Auto) 11-20 H (0-5) /hpf Urine RBC (Auto) >20 H (0-2) /hpf U Hyaline Cast (Auto) >20 H (0-2) /lpf U Epithel Cells (Auto) 11-20 H (0-2) /hpf Urine Bacteria (Auto) 2+ H (None Seen) Diagnostic Findings XR chest 1V portable CLINICAL HISTORY: Sepsis. COMPARISON STUDY: Chest radiograph and right rib series May 04, 2022. FINDINGS: There is mild elevation of the right hemidiaphragm. Lungs are clear. There is no pneumothorax or pleural effusion. Cardiac size is normal. Mediastinal contours are normal. There is no evidence for pulmonary edema. IMPRESSION: No acute cardiopulmonary findings. CT chest diagnostic wo con CT DOSE: 2601.4 mGy.cm CLINICAL HISTORY: left cp/abd pain, hypotension, diarrhea, arf. TECHNIQUE: Multiaxial CT images of the chest were performed without contrast. A dose lowering technique was utilized adhering to the principles of ALARA. COMPARISON STUDY: None FINDINGS: There is no pulmonary consolidation, pleural effusion, or pneumothorax. No significant pulmonary nodule. No enlarged adenopathy. No pericardial effusion. No thoracic aortic aneurysm. There are mild thoracic spine degenerative changes. No acute osseous findings. IMPRESSION: No acute findings. ABDOMEN AND PELVIS CT WITHOUT CONTRAST CT DOSE: 2601 HISTORY: left cp/abd pain, hypotension, diarrhea, arf TECHNIQUE: Multiaxial CT images of the abdomen and pelvis were performed without contrast. A dose lowering technique was utilized adhering to the principles of ALARA. COMPARISON STUDY: None FINDINGS: ABDOMEN: Liver, gallbladder spleen, pancreas, and adrenal glands have an unremar kable non-IV contrast appearance. Kidneys show no hydronephrosis or calculi. There are mild atherosclerotic calcifications. No abdominal aortic aneurysm. Pelvis: Esteban catheter is present. Urinary bladder is empty. There is mild wall thickening and inflammation at the right and transverse colon. Normal appendix. There are a few tiny small bowel diverticula at the right lower quadrant with no acute diverticulitis seen. No free fluid, free air, or abscess. No enlarged adenopathy. No bowel obstruction. Osseous structures: There is diffuse lumbar degenerative disc disease. There is posterior metallic fusion at L5-S1. No acute osseous findings. IMPRESSION: 1. Diffuse colitis at the right and transverse colon. 2. No other acute findings seen. Medications Administered ER Medications Given: Normal saline 2000ml bolus Famotidine 20mg IV Ondansetron 4mg IV Normal saline 1L bolus Normal saline 500ml bolus Zosyn 4.5g IV ECG Rate (beats per minute): 68 Rhythm: normal sinus Findings: no acute ischemic change Comparison ECG Date: from (February 12, 2023) Change: no significant change Code Status & VTE Plan Code Status Full VTE Prophylaxis Plan VTE Prophylaxis will be ordered: Yes Critical Care Time Critical Care Time: Yes Total Critical Care Time: 35 PG Care Time/CCT Total # of Minutes Spent Total Time Spent with Patient: Total time spent is greater than 50% in coordination of care (as documented) at patient's floor/unit and/or counseling patient: Critical Care Time: Yes Total Critical Care Time: 35 Coding Level of Care Code 08361 INT INP/OBS CARE 3/75MIN Diagnoses Septic shock A41.9; R65.21 HEATHER (acute kidney injury) N17.9 Colitis K52.9 Diarrhea R19.7 Additional Codes Critical Care Time - Critical Care Time: Yes ([id number])
[2024-10-21] MEDS: PLASMA-LYTE A 1,000 ML IV SCH (11:19)
[2024-10-21 11:34] LABS: Adenovirus F 40/41 PCR Not Detected (NotDetected); Astrovirus PCR Not Detected (NotDetected); Campylobacter PCR Not Detected (NotDetected); Cryptosporidium PCR Not Detected (NotDetected); Cyclospora cayetanensis PCR Not Detected (NotDetected); Entamoeba histolytica PCR Not Detected (NotDetected); Enteroaggregative E.coli(EAEC) Not Detected (NotDetected); Enteropathogenic E.coli (EPEC) Not Detected (NotDetected); Giardia lamblia PCR Not Detected (NotDetected); Norovirus GI/GII PCR Not Detected (NotDetected); Plesiomonas shigelloides PCR Not Detected (NotDetected); Rotavirus A PCR Not Detected (NotDetected); Sapovirus PCR Not Detected (NotDetected); Shiga-like Toxin E.coli (STEC) Not Detected (NotDetected); Shigella/Enteroinvasive E.coli Not Detected (NotDetected); Vibrio cholerae PCR Not Detected (NotDetected); Vibrio species PCR Not Detected (NotDetected); Yersinia enterocolitica PCR Not Detected (NotDetected)
[2024-10-21 11:43] LABS: Base Excess VBG -4.9 mEq/L; HCO3 VBG 22 mmol/L; Oxygen Saturation VBG < 60.0 %; PCO2 VBG 44 mmHg (38-50); PO2 VBG 33 mmHg
--- NOTE | 2024-10-21 11:46 | Electrocardiogram Report ---
Test Reason : Blood Pressure : */* mmHG Vent. Rate : 68 BPM Atrial Rate : 68 BPM P-R Int : 166 ms QRS Dur : 96 ms QT Int : 414 ms P-R-T Axes : 58 39 61 degrees QTcB Int : 440 ms Poor data quality, interpretation may be adversely affected Normal sinus rhythm Normal ECG When compared with ECG of 12-Feb-2023 10:04, No significant change was found Confirmed by Casey Martin ([id number]) on 10/21/2024 11:46:07 AM Referred By: Confirmed By: Casey Martin
[2024-10-21 11:53] LABS: Enterotoxigenic E.coli (ETEC) DETECTED (NotDetected); Salmonella PCR DETECTED (NotDetected)
--- NOTE | 2024-10-21 12:27 | Critical Care Consultation ---
Date of Consultation October 21, 2024 Assessment & Plan (1) Hypotension: (2) Diarrhea: (3) Septic shock: (4) Enterotoxigenic Escherichia coli infection: (5) Salmonella infection: (6) HEATHER (acute kidney injury): (7) Colitis: (8) Hypertension: chronic, takes lisinopril 10mg daily at home Supervising Physician Co-Signing Physician Notes Dr. Mckeon was resident physician during care of patient. I generally agree with the findings and plan. History of Present Illness Reason for Consultation: hypotension with MAP<65, likely sepsis, vasopressor requirement History of Present Illness Roel is a 59yo male with PMHx HTN, obesity, chronic R medial meniscus injury, presenting to ED for 4 days of profuse watery diarrhea, some vomiting for 2-3 days, chills, and b/l leg cramps last night. Patient was found to be hypotensive with MAP<65 requiring vasopressor support, admitted to the ICU for vasopressor requirement secondary to suspected septic shock due to GI infection. Found to be positive for ETEC and salmonella in stool. UA showing 2+ bacteria and 3+ blood. Elevated anion gap to 19. Significantly elevated creatinine from prior: 5.4, up from 1.07 in Jun 2024. Urine and blood cultures pending. States he went to an event on Saturday10/17/24 called a "butchering" in which he and several others bring their own butchered meats to cook and eat. Notes some of the meats were out for several hours, and he recalls eating several different types of beef and pork meat. Endorses he start having the diarrhea on Saturday night, and it has persisted through present day. Denies any blood seen, but notes some green coloration. States he was also having nonbloody but slightly bilious vomiting on Saturday10/18/24 through Saturday10/20/24. Since 10/17, he notes he had very little appetite and very little urine output. Currently no nausea or vomiting, no cramping. Denies recent travel. ED Course: found to be hypotensive 70s-90s/40-50s with heart rate mainly in 60s- 70s, given 2L normal saline, norepinephrine at 0.05mcg/kg/min, started on Zosyn, 1L LR. Denies past dx of CKD or prior UTI, nor past significant diarrhea with similar accompanying symptoms. Of note patient has been taking prednisone for R chronic knee pain, and has been on Wegovy for weight loss for about 10mos. Allergies Allergy/AdvReac Type Severity Reaction Status Date / Time No Known Allergies Allergy Unknown Verified 10/21/24 09:41 Home Medications Medication Instructions Recorded Confirmed Type lisinopril 10 mg tablet 10 mg PO DAILY 10/21/24 10/21/24 History prednisone 10 mg tablet See Rx Instructions .Route .COMPLEX 10/21/24 10/21/24 History semaglutide (weight loss) 0.25 0.25 mg subcut WK 10/21/24 10/21/24 History mg/0.5 mL subcutaneous pen injector (Wegovy) Patient History Medical History Hypertension Surgical History No significant past surgical history Social History Smoking Status: Never smoker Tobacco Type: Smokeless Tobacco (Dip or Chew) Second Hand Exposure: No; Do You Dip or Chew Tobacco: Yes; Tobacco Cessation Education Requested by Patient: No Hx Alcohol Use: No Hx Substance Use: No Preferred Language: Malay Communication Ability: Effective Nurse Staff Required: No Beliefs That Will Affect Care: None Current Living Situation: Spouse Other Information That Helps Us Care for You: No Feels Safe at Home: Yes Safety Concerns: Feels Safe At This Time Assistive Devices: None Review of Systems Review of Systems: denies significant headache, sore throat, lightheadedness, dizziness, vision changes, SOB, chest pain, numbness/tingling in extremities. Physical Exam Physical Exam: Constitutional: A&Ox3, not appearing in acute distress HEENT: EOM intact, anicteric sclerae, PERRL b/l; oropharynx with dry mucous membranes, tongue with slight soto/brown coloration, no sores seen Respiratory: clear to auscultation b/l, equal air entry b/l, no wheeze/rales/rhonchi Cardiovascular: RRR, +s1/s2, no murmur/rubs/gallops heard on auscultation - 2+ carotid pulses b/l, 2+ radial pulse s b/l, 2+ posterior tibial pulss GI/abdomen: +BS, abdomen soft, non-tympanic, mild generalized tenderness to palpation of RLQ and LLQ, no guarding - no CVA tenderness appreciated MSK: 5/5 strength in all extremities, no cyanosis or clubbing observed, good capillary refill Neuro: no facial droop, speech intact, moves all extremities, sensation intact Skin: no rashes or sores observed, skin warm Results & Data Results & Data Vital Signs (Past 12 Hours) Vital Signs Temp Pulse Pulse Resp BP BP Pulse Ox 10/21/24 12:04 37.0 C 71 18 120/60 98 10/21/24 11:24 36.8 C 10/21/24 11:12 72 21 124/82 99 10/21/24 11:03 72 21 97 10/21/24 11:00 99/62 L 10/21/24 11:00 99/62 L 10/21/24 11:00 99/62 L 10/21/24 10:55 108/58 L 10/21/24 10:51 64 22 99 10/21/24 10:50 105/58 L 10/21/24 10:50 105/58 L 10/21/24 10:48 65 27 H 99 10/21/24 10:45 63 26 H 97 10/21/24 10:45 94/59 L 10/21/24 10:45 94/59 L 10/21/24 10:42 65 23 97 10/21/24 10:40 86/55 L 10/21/24 10:39 69 20 86/55 L 98 10/21/24 10:36 69 27 H 84/47 L 96 10/21/24 10:32 77/52 L 10/21/24 10:32 77/52 L 10/21/24 10:30 69/49 L 10/21/24 10:27 70 22 95 10/21/24 10:24 94/57 L 10/21/24 10:15 69 20 106/55 L 97 10/21/24 10:12 37.0 C 10/21/24 10:00 67 18 110/58 L 97 10/21/24 10:00 69 21 110/58 L 97 10/21/24 09:51 64 19 82/54 L 98 10/21/24 09:41 99/61 L 10/21/24 09:24 36.4 C L 10/21/24 09:15 80 19 90/58 L 97 10/21/24 09:03 66 19 74/53 L 97 10/21/24 08:30 59 L 17 97/50 L 95 10/21/24 08:24 65 10/21/24 08:18 65 18 89/48 L 98 10/21/24 08:14 36.3 C L 10/21/24 08:03 67 11 L 78/52 L 97 10/21/24 08:01 96 10/21/24 08:00 78/52 L 10/21/24 07:44 94 H 18 55/38 L 98 O2 Del Method 10/21/24 12:04 Room Air 10/21/24 11:24 10/21/24 11:12 Room Air 10/21/24 11:03 10/21/24 11:00 10/21/24 11:00 10/21/24 11:00 10/21/24 10:55 10/21/24 10:51 10/21/24 10:50 10/21/24 10:50 10/21/24 10:48 10/21/24 10:45 10/21/24 10:45 10/21/24 10:45 10/21/24 10:42 10/21/24 10:40 10/21/24 10:39 10/21/24 10:36 10/21/24 10:32 10/21/24 10:32 10/21/24 10:30 10/21/24 10:27 10/21/24 10:24 10/21/24 10:15 10/21/24 10:12 10/21/24 10:00 10/21/24 10:00 10/21/24 09:51 10/21/24 09:41 10/21/24 09:24 10/21/24 09:15 10/21/24 09:03 10/21/24 08:30 10/21/24 08:24 10/21/24 08:18 10/21/24 08:14 10/21/24 08:03 10/21/24 08:01 Room Air 10/21/24 08:00 01/22/25 07:44 Room Air Medications Administered Reason Critically Ill: hypotensive in ER requiring vasopressor support, likely sepsis, profuse diarrhea the past 4 days PLAN: Neuro: intact, unremarkable at this time Resp: unremarkable, saturating upper 90s on room air - cxr and chest CT unremarkable Cardiovascular: was started on norepinephrine 0.05mcg/kg/min in ER for MAP<65 after 4.5L IV fluids - BP no longer hypotensive, continue to monitor while on pressors Fluids/Renal: HEATHER- creatinine 5.4, up from prior 1.07 in June 2024, no prior hx CKD minimal urine output the past few days, picking back up since 4.5L IVF in ER - depleted electrolytes, receiving IV electrolytes - continue monitoring I/O, BMP in morning; mag, phos in morning as well ID: sepsis- positive ETEC and salmonella in stool sample, 2+ bacteria and 3+ blood on UA - 15 WBCs, 11.7 procalcitonin - continue antibiotics: finish current dose of IV Zosyn, then deescalate to IV ceftriaxone - pending urine and blood cultures GI/Nutrition: Positive ETEC and salmonella in stool sample CT abd/pelvis showing colitis of R and transverse colon, likely inflammation secondary to ETEC/salmonella infection - can have low fiber meals if continues to tolerate PO, encourage PO hydration : UA showing 2+ bacteria and 3+ blood - receiving Zosyn, will deescalate to CTX this evening aftr Zosyn dose completes - pending urine and blood cultures Heme: elevated hemoglobin, likely concentration 2/2 profuse diarrhea - CBC in AM Endocrine: high anion gap with metabolic acidosis, elevated lactate downtrending 3.1 -> 2.1 - possible adrenal insufficiency due to oral prednisone use daily, giving IV hydrocortisone - obtain random cortisol level - glucose 145, no DM history, consider SSI if continues to be elevated Vascular access: L distal ventral forearm and L cubital IVs Code Status: Full code Disposition: ICU Resident Activity Tracking Resident Involvement: Resident Care Provided Care Provided: Adult Hospital Medicine (1) Hypotension Hypotension type: hypotension due to hypovolemia Qualified Code(s): E86.1 - Hypovolemia (2) Diarrhea Diarrhea type: presumed infectious Qualified Code(s): R19.7 - Diarrhea, unspecified
[2024-10-21] MEDS: HYDROCORTISONE SOD 200 MG in SYRINGE 0 ML IV STA (13:25)
[2024-10-21] MEDS: ICU Protocol for HYPERglycemia SCH (13:25)
[2024-10-21] MEDS: HEPARIN SOD 5,000 UNIT/0.5 ML VIAL SQ SCH (13:26)
[2024-10-21] MEDS: ONDANSETRON INJ 2 MG/ML 2 ML VIAL IV PRN (14:35)
[2024-10-21] MEDS: ACETAMINOPHEN 325 MG TAB PO PRN (15:21)
[2024-10-21 16:27] LABS: Base Excess VBG -4.1 mEq/L; HCO3 VBG 22 mmol/L; Oxygen Saturation VBG < 60.0 %; PCO2 VBG 44 mmHg (38-50); PO2 VBG 28 mmHg; pH VBG 7.31 (7.36-7.41)
[2024-10-21 16:43] LABS: BUN Creatinine Ratio 12.9 (10-20); Calcium 8.2 mg/dl (8.6-10.3); Creatinine Clr Calc Pharmacy 23.9 ml/min; Potassium 3.3 mmol/L (3.5-5.1)
[2024-10-21] MEDS ORDERED: PIPERACILLIN/TAZOBACTAM 4.5 GM/100 ML BAG IV SCH (18:00)
[2024-10-21] MEDS: cefTRIAXone SODIUM 2,000 MG/50 ML BAG IV SCH (19:51)
[2024-10-22 05:06] LABS: Base Excess VBG -0.6 mEq/L; HCO3 VBG 25 mmol/L; Oxygen Saturation VBG < 60.0 %; PCO2 VBG 46 mmHg (38-50); PO2 VBG 26 mmHg; pH VBG 7.35 (7.36-7.41)
[2024-10-22 05:30] LABS: Albumin Globulin Ratio 1.2 (0.9-2); Albumin Level 3.3 gm/dl (3.4-5.0); BUN Creatinine Ratio 14.6 (10-20); Bilirubin,Total 0.4 mg/dl (0.2-1.0); Globulin 2.7 gm/dl (2.5-4.0); Magnesium 2.3 mg/dl (1.7-2.4); Phosphorus 4.1 mg/dl (2.5-4.9); Potassium 3.4 mmol/L (3.5-5.1)
[2024-10-22 05:35] LABS: Hematocrit (blood only) 43.4 % (42.0-52.0); Hemoglobin 15.3 g/dl (14.0-18.0); Mean Corpuscular Hemoglobin 30.4 pg (25.0-34.0); Mean Corpuscular Hgb Conc 35.3 g/dL (32.0-36.0); Mean Corpuscular Volume 86.1 fL (80.0-100.0); Mean Platelet Volume 11.7 fL (9.4-12.4); Platelet Count 168 K/uL (130-400); RDW Coefficient of Variation 13.1 % (11.5-14.5); RDW Standard Deviation 40.9 fL (36.4-46.3); Red Blood Count 5.04 M/uL (4.70-6.10); White Blood Count 10.73 K/ul (4.8-10.8)
[2024-10-22 05:36] LABS: Basophils # (auto) 0.02 K/uL (0.00-0.20); Basophils % (auto) 0.2 %; Eosinophils # (auto) 0.01 K/uL (0.00-0.50); Eosinophils % (auto) 0.1 %; Immature Granulocytes # (auto) 0.08 K/uL (0.01-0.20); Immature Granulocytes % (auto) 0.7 %; Lymphocytes # (auto) 1.44 K/uL (1.20-3.40); Lymphocytes % (auto) 13.4 %; Monocytes # (auto) 1.21 K/uL (0.11-0.59); Monocytes % (auto) 11.3 %; Neutrophils # (auto) 7.97 K/uL (1.40-6.50); Neutrophils % (auto) 74.3 %
[2024-10-22] MEDS: FAMOTIDINE 20 MG TAB PO PRN (06:14)
--- NOTE | 2024-10-22 06:41 | Critical Care Progress Note ---
Date of Service October 22, 2024 Assessment & Plan (1) Hypotension: (2) Diarrhea: (3) Septic shock: (4) Enterotoxigenic Escherichia coli infection: (5) Salmonella infection: (6) HEATHER (acute kidney injury): (7) Colitis: (8) Hypertension: Plan: chronic, takes lisinopril 10mg daily at home Plan Reason Critically Ill: hypotensive in ER requiring vasopressor support, likely sepsis, profuse diarrhea the past 4 days PLAN: Neuro: intact, unremarkable at this time Resp: unremarkable, saturating upper 90s on room air - cxr and chest CT unremarkable Cardiovascular: did not require any more vasopressors for BP support overnight and this morning - no longer hypotensive, continue to monitor Fluids/Renal: HEATHER- creatinine downtrending 5.4 -> 3.6 urine output much improved - electrolytes improving globally - continue monitoring I/O: currently up ~650cc fluids - BMP in AM ID: sepsis- positive ETEC and salmonella in stool sample, 2+ bacteria and 3+ blood on UA - WBC 15 -> 10.7; 11.7 procalcitonin 10/21/24 - continue antibiotics: IV ceftriaxone - pending urine cultures; blood cultures no growth in 24hrs - new fever, likely in setting of above infection, continue abx and Tylenol prn, awaiting urine and final blood cx results GI/Nutrition: Positive ETEC and salmonella in stool sample CT abd/pelvis showing colitis of R and transverse colon, likely inflammation secondary to ETEC/salmonella infection - receiving ceftriaxone IV - LFTs normal - tolerating PO meals without issue : UA showing 2+ bacteria and 3+ blood - receiving ceftriaxone IV for GI infection - pending urine cx Heme:Hgb resolved to 15.3, white count resolved - CBC in AM Endocrine: anion gap resolved, lactate resolved - possible adrenal insufficiency due to oral prednisone use daily, giving IV hydrocortisone - obtain random cortisol level - glucose 97 this AM Vascular access: L distal ventral forearm and L cubital IVs Code Status: Full code Disposition: downgrade to med-tele Admission and Anticipated Discharge Date Admission Date: October 21, 2024 Supervising Physician Co-Signing Physician Notes Dr. Mckeon was resident physician during care of patient. I separately evaluated patient for gonzalez portions of the history and the exam. I was present during the critical portion of medical decision making, and I discussed the case with the resident. I generally agree with the findings and plan. Mild improvement in renal function, symptomatology significantly improved. Has remained off vasoactives. Stable for downgrade out of ICU. Subjective Patient was seen and evaluated at bedside this AM, not in acute distress. Endorses having 4 bouts of diarrhea overnight, decreased from 8-9 previously. States he has some abdominal pain this morning, denies nausea/vomiting, lightheadedness, dizziness, headaches. Overnight received electrolytes, KCl, and heparin subQ as he has not been up to walk yet. Feels overall better than day prior. Review of Systems Review of Systems: denies significant headache, sore throat, lightheadedness, dizziness, vision changes, SOB, chest pain, numbness/tingling in extremities. Physical Exam Physical Exam: Constitutional: A&Ox3, not appearing in acute distress HEENT: EOM intact, anicteric sclerae, PERRL b/l; oropharynx with dry mucous membranes, tongue with slight soto/brown coloration, no sores seen Respiratory: clear to auscultation b/l, equal air entry b/l, no wheeze/rales/rhonchi Cardiovascular: RRR, +s1/s2, no murmur/rubs/gallops heard on auscultation - 2+ carotid pulses b/l, 2+ radial pulse s b/l, 2+ posterior tibial pulss GI/abdomen: +BS, abdomen soft, mild generalized tenderness to palpation of RLQ, no guarding, no alvarez's sign - no CVA tenderness appreciated MSK: 5/5 strength in all extremities, no cyanosis or clubbing observed, good capillary refill Neuro: no facial droop, speech intact, moves all extremities, sensation intact Skin: no rashes or sores observed, skin warm Results & Data Results & Data Vital Signs (Past 12 Hours) Vital Signs Temp Pulse Resp BP Pulse Ox 10/22/24 04:09 36.9 C 58 L 22 97 10/22/24 03:06 36.8 C 58 L 15 93/64 L 93 10/22/24 02:48 36.8 C 63 19 90 10/22/24 02:09 36.9 C 54 L 15 94 10/22/24 01:09 36.8 C 58 L 24 97 10/22/24 00:00 36.8 C 63 30 H 100/62 91 10/22/24 00:00 62 10/21/24 23:27 36.7 C 60 20 97 10/21/24 23:21 111/66 10/21/24 23:12 36.6 C 61 24 97 10/21/24 23:03 36.6 C 60 19 109/72 95 10/21/24 22:57 36.7 C 56 L 16 93 10/21/24 22:00 37.0 C 58 L 19 102/58 L 94 10/21/24 21:00 37.1 C 82 14 121/67 10/21/24 20:06 37.1 C 60 22 95/53 L 95 10/21/24 19:42 37.1 C 60 27 H 97 10/21/24 19:12 37.3 C 63 15 95 Resident Activity Tracking Resident Involvement: Resident Care Provided Care Provided: Adult Hospital Medicine (1) Hypotension Hypotension type: hypotension due to hypovolemia Qualified Code(s): E86.1 - Hypovolemia (2) Diarrhea Diarrhea type: presumed infectious Qualified Code(s): R19.7 - Diarrhea, unspecified
[2024-10-22] MEDS: POTASSIUM CHLORIDE CRTAB 20 MEQ TABCR PO STA (06:47)
[2024-10-22] MEDS: POTASSIUM CHLORIDE / WTR 10 MEQ/100 ML PLCT IV SCH (06:47)
--- NOTE | 2024-10-22 12:52 | Hospitalist Progress Note ---
Date of Service October 22, 2024 Assessment & Plan (1) Septic shock: Plan: Improved. Blood pressure stable without the use of pressors Continue to hold lisinopril Continue ceftriaxone Stool positive for ETEC and Salmonella (2) HEATHER (acute kidney injury): Plan: Improving Will start gentle IV fluids maintenance dose since ongoing diarrhea Hold losartan (3) Colitis: Plan: Suspected source of sepsis Stool PCR positive for ETEC and Salmonella On ceftriaxone (4) Diarrhea: Plan: Stool PCR positive for ETEC and Salmonella Continue ceftriaxone Plan VTE Prophylaxis - Heparin 5000 units SQ q8h Diet - low fiber CODE STATUS: Full code Disposition: Transfer out of ICU Admission and Anticipated Discharge Date Admission Date: October 21, 2024 Subjective Patient was seen and examined at 11:10 AM. He says he feels much better overall. But still has ongoing diarrhea. Per nurse he is not requiring pressors anymore. He would like the Esteban catheter to be removed. Review of Systems Review of Systems: All systems reviewed & are unremarkable except as noted in Subjective Physical Exam Physical Exam: General: Awake, conversant Heart: S1, S2/regular rate and rhythm, no murmur rubs or gallops Lungs: Clear to auscultation bilaterally. Normal effort Abdomen: Soft/nontender/nondistended. No hepatosplenomegaly Extremities: No clubbing/cyanosis. No edema Behavior: Appropriate, cooperative Results & Data Results & Data Vital Signs (Past 12 Hours) Vital Signs Temp Pulse Resp BP Pulse Ox O2 Del Method 10/22/24 11:21 37.9 C H 10/22/24 10:00 37.8 C H 68 30 H 96 Room Air 10/22/24 10:00 123/75 10/22/24 09:00 37.7 C H 69 22 96 10/22/24 09:00 117/71 10/22/24 09:00 117/71 10/22/24 08:06 37.6 C H 70 24 96 Room Air 10/22/24 08:00 108/62 10/22/24 08:00 108/62 10/22/24 08:00 108/62 10/22/24 07:15 37.3 C 66 18 98 10/22/24 07:00 37.3 C 62 25 H 98 10/22/24 07:00 110/75 10/22/24 07:00 110/75 10/22/24 04:09 36.9 C 58 L 22 97 10/22/24 03:06 36.8 C 58 L 15 93/64 L 93 10/22/24 02:48 36.8 C 63 19 90 10/22/24 02:09 36.9 C 54 L 15 94 10/22/24 01:09 36.8 C 58 L 24 97 Laboratory Results Abnormal lab results 10/21/24 10/21/24 10/22/24 Range/Units 16:03 16:22 00:10 Neut # (Auto) (1.40-6.50) K/uL Jones # (Auto) (0.11-0.59) K/uL VBG pH 7.31 L (7.36-7.41) Sodium 127 L (136-145) mmol/L Potassium 3.3 L (3.5-5.1) mmol/L Chloride 96 L (98-107) mmol/L Carbon Dioxide 20 L (21-32) mmol/L BUN 56 H (6-23) mg/dl Creatinine 4.33 H D (0.6-1.4) mg/dl Glucose 132 H (70-99(Fasting)) mg/dl POC Glucose 133 H 109 H (70-99) mg/dl Lactate 2.6 H* (0.4-2.0) mmol/L Calcium 8.2 L (8.6-10.3) mg/dl Albumin (3.4-5.0) gm/dl 10/22/24 Range/Units 04:58 Neut # (Auto) 7.97 H (1.40-6.50) K/uL Jones # (Auto) 1.21 H (0.11-0.59) K/uL VBG pH 7.35 L (7.36-7.41) Sodium 133 L (136-145) mmol/L Potassium 3.4 L (3.5-5.1) mmol/L Chloride (98-107) mmol/L Carbon Dioxide (21-32) mmol/L BUN 52 H (6-23) mg/dl Creatinine 3.57 H D (0.6-1.4) mg/dl Glucose (70-99(Fasting)) mg/dl POC Glucose (70-99) mg/dl Lactate (0.4-2.0) mmol/L Calcium 8.0 L (8.6-10.3) mg/dl Albumin 3.3 L (3.4-5.0) gm/dl PG Care Time/CCT Total # of Minutes Spent Total Time Spent with Patient: Total time spent is greater than 50% in coordination of care (as documented) at patient's floor/unit and/or counseling patient: Coding Level of Care Code 99562 SUB INP/OBS CARE 2/35MIN Diagnoses Septic shock A41.9; R65.21 HEATHER (acute kidney injury) N17.9 Colitis K52.9 Diarrhea of presumed infectious origin R19.7 Diarrhea type: presumed infectious (4) Diarrhea Diarrhea type: presumed infectious Qualified Code(s): R19.7 - Diarrhea, unspecified
[2024-10-22] MEDS: NSS + 20MEQ KCL 20 MEQ/1,000 ML BAG IV SCH (13:58)
--- NOTE | 2024-10-22 16:38 | Billing Data ---
Date of Service October 22, 2024 Coding Level of Care Code 87952 SUB INP/OBS CARE
[2024-10-22 21:43] VITALS: RESP 16
[2024-10-23 06:52] LABS: BUN Creatinine Ratio 16.2 (10-20); Calcium 8.4 mg/dl (8.6-10.3); Creatinine Clr Calc Pharmacy 53.5 ml/min; Potassium 3.6 mmol/L (3.5-5.1)
--- NOTE | 2024-10-23 14:11 | Hospitalist Progress Note ---
Date of Service October 23, 2024 Assessment & Plan (1) Septic shock: Plan: Resolved Blood pressure stable without the use of pressors Continue to hold lisinopril Continue ceftriaxone Stool positive for ETEC and Salmonella Plan to switch to p.o. Levaquin upon discharge (2) HEATHER (acute kidney injury): Plan: Improving Stop IV fluids. Encourage p.o. fluid intake Hold losartan (3) Colitis: Plan: Suspected source of sepsis Stool PCR positive for ETEC and Salmonella On ceftriaxone, plan to DC on p.o. Levaquin (4) Diarrhea: Plan: Stool PCR positive for ETEC and Salmonella Continue ceftriaxone, plan to DC on p.o. Levaquin Plan VTE Prophylaxis - Heparin 5000 units SQ q8h Diet - low fiber CODE STATUS: Full code Disposition: Likely discharge 10/24 Admission and Anticipated Discharge Date Admission Date: October 21, 2024 Subjective Patient was seen and examined at 11:35 AM. Denied chest pain or shortness of breath. Says that his diarrhea has improved in frequency and consistency but has not normalized yet. Review of Systems Review of Systems: All systems reviewed & are unremarkable except as noted in Subjective Physical Exam Physical Exam: General: Awake, conversant Heart: S1, S2/regular rate and rhythm, no murmur rubs or gallops Lungs: Clear to auscultation bilaterally. Normal effort Abdomen: Soft/nontender/nondistended. No hepatosplenomegaly Extremities: No clubbing/cyanosis. No edema Behavior: Appropriate, cooperative Results & Data Results & Data Vital Signs (Past 12 Hours) Vital Signs Temp Pulse Resp BP Pulse Ox O2 Del Method 10/23/24 07:30 Room Air 10/23/24 07:09 36.6 C 60 16 144/79 H 96 Room Air Laboratory Results Abnormal lab results 10/23/24 Range/Units 06:08 Sodium 134 L (136-145) mmol/L BUN 31 H D (6-23) mg/dl Creatinine 1.91 H D (0.6-1.4) mg/dl Calcium 8.4 L (8.6-10.3) mg/dl PG Care Time/CCT Total # of Minutes Spent Total Time Spent with Patient: Total time spent is greater than 50% in coordination of care (as documented) at patient's floor/unit and/or counseling patient: Coding Level of Care Code 46186 SUB INP/OBS CARE 2/35MIN Diagnoses Septic shock A41.9; R65.21 HEATHER (acute kidney injury) N17.9 Colitis K52.9 Diarrhea of presumed infectious origin R19.7 Diarrhea type: presumed infectious (4) Diarrhea Diarrhea type: presumed infectious Qualified Code(s): R19.7 - Diarrhea, unspecified
[2024-10-24 07:21] LABS: BUN Creatinine Ratio 13.8 (10-20); Calcium 8.7 mg/dl (8.6-10.3); Creatinine Clr Calc Pharmacy 74.2 ml/min; Potassium 3.7 mmol/L (3.5-5.1)
[2024-10-24 07:42] VITALS: PULSE 61; TEMP 97.9; O2SAT 99
[2024-10-24 07:52] VITALS: BP 119/77
--- NOTE | 2024-10-24 08:18 | Discharge Summary ---
Date of Service October 24, 2024 Admission HPI Per Admitting Provider Roel Dos Santos is a 59 year old male who presents to the ER with diarrhea, generalized weakness and lightheadedness. He reports illness started on Saturday. Mainly with diarrhea, mild abdominal pain associated with bowel movements and a few episodes of vomiting. No melena or bright red blood in stool. Stool has been watery. No history of c. diff or antibiotics within the last month. He notes being on a 4 day course of prednisone from Saturday to Saturday last week for knee inflammation which is an ongoing prison issue with occasional acute flare ups which he puts down to meniscal tear. He takes lisinopril for hypertension which he last took this morning. He has also been on Wegovy for weight loss for the last 10 weeks, which he last took on Saturday when he got sick. No nausea or vomiting currently. No prior similar diarrheal illness. No respiratory or urinary (other than reduced) symptoms. Admission Exam Per Admitting Provider Constitutional: WD/WN, vitals as above Eyes: + anicteric sclerae; normal pupil size ENMT: Mouth: + dry oral mucous membranes Respiratory: normal respiratory effort, lungs clear to auscultation Cardiovascular: Rate/Rhythm: regular rate and regular rhythm Heart Sounds: no murmur Extremities: normal capillary refill and + pedal edema (trace); no calf tenderness Gastrointestinal (Abdomen): Inspection/Auscultation: abdomen normal to inspection; abdomen not distended Percussion/Palpation: + abdomen tender (Right sided) and abdomen soft; no guarding and abdomen not rigid Musculoskeletal: no cyanosis or clubbing, extremities motor strength 5/5 Skin: no rashes, warm and dry Neurologic: moves all extremities and awake; no focal motor deficits and not confused Psychiatric: A+Ox3, euthymic affect Genitourinary: no CVA tenderness Principal Diagnosis Septic and hypovolemic shock. Resolved Acute kidney injury. Resolved Colitis and diarrhea due to enterotoxigenic E. coli and Salmonella Discharge Exam General: Awake, conversant Heart: S1, S2/regular rate and rhythm, no murmur rubs or gallops Lungs: Clear to auscultation bilaterally. Normal effort Abdomen: Soft/nontender/nondistended. No hepatosplenomegaly Extremities: No clubbing/cyanosis. No edema Behavior: Appropriate, cooperative Discharge Data Allergies Allergy/AdvReac Type Severity Reaction Status Date / Time No Known Allergies Allergy Unknown Verified 10/21/24 09:41 Consultations 10/21/24 10:56 ED Decision to Admit Stat 10/21/24 12:25 Consult [employer] Sniper Routine Ordered Studies Chest X-Ray 10/21/24 08:01 XR chest 1V portable CLINICAL HISTORY: Sepsis. COMPARISON STUDY: Chest radiograph and right rib series May 04, 2022. FINDINGS: There is mild elevation of the right hemidiaphragm. Lungs are clear. There is no pneumothorax or pleural effusion. Cardiac size is normal. Mediastinal contours are normal. There is no evidence for pulmonary edema. IMPRESSION: No acute cardiopulmonary findings. ACT 112: Negative or not required by law. Electronically signed by: Olivier López M.D. 10/21/2024 8:26 AM Abdomen/Pelvis CT 10/21/24 08:[address] WITHOUT CONTRAST CT DOSE: 2601 HISTORY: left cp/abd pain, hypotension, diarrhea, arf TECHNIQUE: Multiaxial CT images of the abdomen and pelvis were performed without contrast. A dose lowering technique was utilized adhering to the principles of ALARA. COMPARISON STUDY: None FINDINGS: ABDOMEN: Liver, gallbladder spleen, pancreas, and adrenal glands have an unremarkable non-IV contrast appearance. Kidneys show no hydronephrosis or calculi. There are mild atherosclerotic calcifications. No abdominal aortic aneurysm. Pelvis: Esteban catheter is present. Urinary bladder is empty. There is mild wall thickening and inflammation at the right and transverse colon. Normal appendix. There are a few tiny small bowel diverticula at the right lower quadrant with no acute diverticulitis seen. No free fluid, free air, or abscess. No enlarged adenopathy. No bowel obstruction. Osseous structures: There is diffuse lumbar degenerative disc disease. There is posterior metallic fusion at L5-S1. No acute osseous findings. IMPRESSION: 1. Diffuse colitis at the right and transverse colon. 2. No other acute findings seen. ACT 112: Negative or not required by law. The above report was generated using voice recognition software. It may contain grammatical, syntax or spelling errors. Electronically signed by: Minh Mccracken M.D. 10/21/2024 9:[address] 10/21/24 08:59 CT chest diagnostic wo con CT DOSE: 2601.4 mGy.cm CLINICAL HISTORY: left cp/abd pain, hypotension, diarrhea, arf. TECHNIQUE: Multiaxial CT images of the chest were performed without contrast. A dose lowering technique was utilized adhering to the principles of ALARA. COMPARISON STUDY: None FINDINGS: There is no pulmonary consolidation, pleural effusion, or pneumothorax. No significant pulmonary nodule. No enlarged adenopathy. No pericardial effusion. No thoracic aortic aneurysm. There are mild thoracic spine degenerative changes. No acute osseous findings. IMPRESSION: No acute findings. ACT 112: Negative or not required by law. Electronically signed by: Minh Mccracken M.D. 10/21/2024 9:51 AM 10/21/24 08:59 CT abd pelvis wo con Stat CT chest diagnostic wo con Stat Hospital Course (1) Septic shock: Resolved Blood pressure stable without the use of pressors Lisinopril was held. Resume at the time of discharge Patient was treated with ceftriaxone Stool positive for ETEC and Salmonella switch to p.o. Levaquin upon discharge (2) HEATHER (acute kidney injury): Improving Stopped IV fluids. Encourage p.o. fluid intake Resume losartan upon discharge (3) Colitis: Suspected source of sepsis Stool PCR positive for ETEC and Salmonella On ceftriaxone, DC on p.o. Levaquin (4) Diarrhea: Stool PCR positive for ETEC and Salmonella Continue ceftriaxone, DC on p.o. Levaquin Plan Discharge to home today Total Time Total Time Spent Total Time Spent (In Minutes): 35 Discharge Plan Discharge Items Patient Disposition: Home - Self-Care Reason For Visit: SEVERE DIARRHEA, SEPSIS Discharge Diagnosis: Septic and hypovolemic shock. Resolved Acute kidney injury. Resolved Colitis and diarrhea due to enterotoxigenic E. coli and Salmonella Activity: Resume your previous activity Non-emergency contact: Primary Care Provider Call non-emergency contact if: you have any medication questions Follow-up/Referrals: Dennise Cifuentes MD [Primary Care Provider] - Diet: Heart Healthy Addtl Attending Provider Instructions: Advised to follow-up with PCP in 1 week Pending Studies at Discharge: No Stand-Alone Forms: My [employer]man, Smoking Cessation Medications and DC Order Prescriptions: New levofloxacin 750 mg tablet 750 mg PO DAILY 5 Days Qty: 5 0RF Continued lisinopril 10 mg tablet 10 mg PO DAILY Wegovy 0.25 mg/0.5 mL pen injector 0.25 mg subcut WK Discontinued prednisone 10 mg tablet See Rx Instructions .ROUTE .COMPLEX Rx Instructions: Start Date 10/13/24 x10 day supply. Take 50mg by mouth daily x 2 days; 40mg x 2 days; 30mg x 2 days; 20mg x 2 days and 10mg x 2 days Discharge Orders: Discharge Order (Routine); Ordered 10/24/24 Ordered By: Anthony Kuhn/Other Patient Handouts: Preventing Food Poisoning, ED Food Poisoning (Adult) Admission Data Admit Date/Time: 10/21/24 11:11 Attending Provider: Anthony Rendon Admit Provider: Eliezer Blanton Primary Care Provider: Dennise Cifuentes Other Providers: Eliezer Blanton; Tank Delcid Other Interventions: Discharge Summary Assessment (RN) Last Done: 10/24/24 09:57
== END 2024-10-24 10:28 | disposition home or self-care (01) | DRG 871 ==
LOC: ED 07:35 → SUATTDRO 11:11 → 1E 11:11 → 3E 10-22 21:30